=== PATIENT | male | born 1965 | race Caucasian/White ===

== ENCOUNTER → 2017-05-28 14:18 | Outpatient (CLI) | payer BC, SELFPAY ==
[2017-05-28 14:59] LABS: Basophils % 0.6 % (0.1-2.0); Eosinophils # 0.2 K/mm3 (0.0-0.4); Eosinophils % 2.7 % (0.1-12.0); Hematocrit 40.9 % (42.0-52.0); Hemoglobin 13.5 g/dL (14.1-18.0); Lymphocytes # 2.6 K/mm3 (0.7-4.5); Lymphocytes % 36.3 K/mm3 (10-50); Mean Corpuscular HGB Conc 33.1 g/dL (31.8-35.4); Mean Corpuscular Hemoglobin 30.6 pg (27.0-31.2); Mean Corpuscular Volume 92.7 fl (80-94); Mean Platelet Volume 6.5 fl (7.4-10.4); Monocytes # 0.4 K/mm3 (0.1-1.0); Monocytes % 5.5 % (1.7-9.3); Neutrophils # 3.9 K/mm3 (1.8-7.8); Neutrophils % 54.8 % (37.0-80.0); Platelet Count 444 K/mm3 (142-424); Red Blood Count 4.41 M/mm3 (4.60-6.20); Red Cell Distribution Width 12.7 % (11.5-17.5); White Blood Count 7.1 K/mm3 (4.8-10.8)
[2017-05-28 15:54] LABS: Alanine Aminotransferase 17 U/L (12-78); Albumin Level 4.3 gm/dL (3.4-5.0); Albumin/Globulin Ratio 1.9 (1.1-1.8); Alkaline Phosphatase 111 U/L (46-116); Amylase 35 U/L (25-125); Aspartate Amino Transferase 17 U/L (15-37); Bilirubin,Total 0.6 mg/dL (0.2-1.0); Blood Urea Nitrogen 6 mg/dL (7-18); Calcium 9.3 mg/dL (8.5-10.1); Carbon Dioxide 28 mmol/L (21.0-32.0); Chloride 92 mmol/L (98-107); Creatinine,Serum 0.72 mg/dL (0.70-1.30); Estimated Glomerular Filt Rate 115 ml/min (>60); GFR (African American) 139 ML/MIN (>60); Globulin 2.3 gm/dl (1.3-3.2); Glucose 94 mg/dL (74-106); Lipase 56 u/L (73-393); Sodium 129 mmol/L (136-145); Total Protein,Serum 6.6 gm/dL (6.4-8.2)
== END ==
PROVIDERS: Family Provider Family Medicine; PCP Family Medicine; Visit Provider Surgery
DX: K82.9 Disease of gallbladder, unspecified (principal); R10.11 Right upper quadrant pain
CPT/HCPCS: 36415; 80053; 82150; 83690; 85025

== ENCOUNTER → 2017-06-03 08:34 | Outpatient (CLI) | payer BC, SELFPAY ==
--- NOTE | 2017-06-03 08:39 | MR_ITS ---
MR cervical spine wo con HISTORY: Neck pain with left arm pain and numbness ITS.REASON: RADICULOPATHY, CERVICAL REGION ORDERING PHYSICIAN: Tyrone Sanches PATIENT AGE: 51 years COMPARISON: 04/08/2016 TECHNIQUE: Standard multiplanar multiecho sequences are performed without contrast. 3-D MIP and myelographic images are also rendered and reviewed FINDINGS: There is normal alignment. The craniocervical junction has an unremarkable appearance. C2-C3: Minimal bulging disc. C3-C4: Degenerative disc disease with bulging disc and broad-based disc osteophyte complex with narrowing of the canal along with bilateral lateral recess and foraminal narrowing similar to the previous exam. Canal measures approximately 7 mm. C4-C5: Degenerative disc disease with broad-based bulging disc/disc osteophyte complex with canal stenosis and bilateral lateral recess and foraminal narrowing similar to the previous exam. The foraminal narrowing slightly greater on the left. Canal stenosis at 6 mm which may be slightly more narrow on today's exam. There is mild flattening of the cord at both C3-C4 and C4-C5. C5-C6: Degenerative disc disease with bulging disc with narrowing of the canal. Mild bilateral foraminal and lower recess narrowing. Type I endplate changes at C5-6 C6-C7: Degenerative disc disease with bulging disc and minimal right paracentral disc protrusion. Previously noted right paracentral disc herniation no longer apparent. Type I endplate changes at C5-6. C7-T1: Minimal anterolisthesis of C7. IMPRESSION: 1. Severe cervical spondylosis with multilevel degenerative disc disease as detailed above. Please above for detailed description at each level. 2. C3-C4: Degenerative disc disease with bulging disc and broad-based disc osteophyte complex with narrowing of the canal along with bilateral lateral recess and foraminal narrowing similar to the previous exam. Canal measures approximately 7 mm. 3. C4-C5: Degenerative disc disease with broad-based bulging disc/disc osteophyte complex with canal stenosis and bilateral lateral recess and foraminal narrowing similar to the previous exam. The foraminal narrowing slightly greater on the left. Canal stenosis at 6 mm which may be slightly more narrow on today's exam. There is mild flattening of the cord at both C3-C4 and C4-C5. 4. C5-C6: Degenerative disc disease with bulging disc with narrowing of the canal. Mild bilateral foraminal and lower recess narrowing. 5. C6-C7: Degenerative disc disease with bulging disc and minimal right paracentral disc protrusion. Previously noted right paracentral disc herniation no longer apparent.
--- NOTE | 2017-06-03 09:23 | CT_ITS ---
CT abdomen pelvis w con CLINICAL INDICATION: Right-sided abdominal pain status post recent cholecystectomy ORDERING PHYSICIAN: Tyrone Sanches PATIENT AGE: 51 years COMPARISON: 04/21/2017 TECHNIQUE: Axial images obtained with sagittal and coronal reformats. PROCEDURE: Oral Contrast: Redicat IV Contrast: 75 mL Isovue-370. FINDINGS: The lung bases are clear. There is a 4 mm isodensity in the posterior segment of the right hepatic lobe and may be due to small cyst too small to characterize. The liver is otherwise unremarkable. There has been prior cholecystectomy. There is no evidence of biloma, abscess, or ductal dilatation. The spleen, adrenal glands, pancreas, and kidneys have an unremarkable appearance. No hydronephrosis or obstructing ureteral calculus or renal mass evident. No evidence of appendicitis, diverticulitis, intestinal obstruction, free air. There is a mild amount retained colonic feces. No pelvic mass evident no fluid collection or focal inflammatory change. There is bilateral pars defect at L5 without spondylolisthesis. No acute bony findings. IMPRESSION: 1. No acute abdominal or pelvic findings. 2. Prior cholecystectomy without ductal dilatation. 3. Other nonacute findings as described above
== END ==
PROVIDERS: Family Provider Family Medicine; PCP Family Medicine; Visit Provider Neurological Surgery
DX: R10.11 Right upper quadrant pain (principal); M54.12 Radiculopathy, cervical region
CPT/HCPCS: 72141; 74177; Q9967

== ENCOUNTER → 2017-08-20 09:45 | Outpatient (CLI) | payer BC, SELFPAY ==
[2017-08-20 10:26] VITALS: PULSE 65
== END ==
PROVIDERS: Family Provider Family Medicine; PCP Family Medicine; Visit Provider Family Medicine
DX: R06.02 Shortness of breath (principal)
CPT/HCPCS: 94060; 94640

== ENCOUNTER → 2017-09-02 10:09 | Outpatient (CLI) | payer BC, SELFPAY ==
--- NOTE | 2017-09-02 10:18 | CT_ITS ---
CT chest w con HISTORY: ITS.REASON: SHORTNESS OF BREATH ORDERING PHYSICIAN: Grace Patel MD PATIENT AGE: 51 years TECHNIQUE: Axial images obtained following the administration of 75 mL of Isovue 370 . Sagittal, and coronal reformatted images are also generated and reviewed. All CT scans at the facility use one or more dose reduction, viz: automated exposure control; ma/kV adjustment per patient size (including targeted exams where dose is matched to indication; i.e. head); or iterative reconstruction technique. COMPARISON: none FINDINGS: No mediastinal or hilar mass or adenopathy is evident. No evidence of aortic aneurysm, dissection, or central pulmonary embolus. Normal heart size. No evidence of pericardial effusion. There is hyperinflation suggesting small airway disease such as asthma or bronchitis. Does the patient have a positive smoking history? There is patchy groundglass density within the anterior aspect of the right middle lobe laterally and within the anterior aspect of the lingula which may represent mild pneumonitis. No lobar consolidation or collapse. There is a calcified granuloma in superior segment left lower lobe. Upper abdominal images are unremarkable. No acute bony anomalies. IMPRESSION: 1. Patchy groundglass density in the right middle lobe and lingula anteriorly and may represent small areas of pneumonitis. 2. Hyperinflation nonspecific but may be seen with small airway disease such as asthma, bronchitis, or COPD.
== END ==
PROVIDERS: Family Provider Family Medicine; PCP Family Medicine; Visit Provider Family Medicine
DX: R06.02 Shortness of breath (principal)
CPT/HCPCS: 71260; Q9967

== ENCOUNTER → 2017-09-20 17:01 | Outpatient (CLI) | payer BC, SELFPAY ==
[2017-09-20 18:39] LABS: Anion Gap 14.3 mEq/L (5-15); Blood Urea Nitrogen 13 mg/dL (7-18); Carbon Dioxide 27 mmol/L (21.0-32.0); Chloride 97 mmol/L (98-107); Estimated Glomerular Filt Rate 102 ml/min (>60); GFR (African American) 123 ML/MIN (>60); Glucose 112 mg/dL (74-106); Potassium 5.3 mmoL/L (3.5-5.1); Sodium 133 mmol/L (136-145)
== END ==
PROVIDERS: Visit Provider Physician Assistant
DX: E87.1 Hypo-osmolality and hyponatremia (principal)
CPT/HCPCS: 36415; 80048

== ENCOUNTER → 2017-10-01 07:06 | Outpatient (CLI) | payer BC, SELFPAY ==
[2017-10-01 08:49] LABS: Creatinine,Urine Random 87 mg/dL (20-320)
[2017-10-01 10:05] LABS: Anion Gap 11.4 mEq/L (5-15); Blood Urea Nitrogen 9 mg/dL (7-18); Carbon Dioxide 29 mmol/L (21.0-32.0); Chloride 100 mmol/L (98-107); Creatinine,Serum 0.69 mg/dL (0.70-1.30); Estimated Glomerular Filt Rate 120 ml/min (>60); GFR (African American) 146 ML/MIN (>60); Glucose 83 mg/dL (74-106); Potassium 4.4 mmoL/L (3.5-5.1); Sodium 136 mmol/L (136-145); Thyroid Stimulating Hormone 1.97 uIU/ml (0.358-3.740); Uric Acid 4.8 mg/dL (2.6-7.2)
[2017-10-02 19:41] LABS: Sodium, Urine 49 mmol/L (Not Estab.)
[2017-10-05 15:56] LABS: Adrenocorticotropic Hormone 12.3 pg/mL (7.2-63.3)
[2017-10-05 15:57] LABS: Osmolality, Urine 281 mOsmol/kg (.)
== END ==
PROVIDERS: Visit Provider Physician Assistant
DX: E87.1 Hypo-osmolality and hyponatremia (principal)
CPT/HCPCS: 36415; 80048; 82024; 82533; 82570; 83930; 83935; 84300; 84443; 84550; 84588

== ENCOUNTER → 2017-10-26 08:20 | Outpatient (CLI) | payer BC, SELFPAY ==
--- NOTE | 2017-10-26 08:21 | CA_ITS ---
PROCEDURE: 2-D M-mode and color Doppler study INDICATIONS FOR THE TEST: Chest pain COPDX Heart Murmur Tobacco SmokingX Palpitations Fatigue Syncope Edema Hypertension Diabetes Mellitus Rheumatic Fever SOBXDOE Obesity Hyperlipidemia Family History HD Additional History ZANA PATIENT INFORMATION HEIGHT: 68 WEIGHT:144 GENDER: Male B/P:148/75 2-D/M-MODE INTERPRETATION: 2-D MEASUREMENTS OBSERVED VALUES IN CMS Right Ventricular Dimension (RVDd) 2.5 Interventricular Septum (Thickness)(IVsd) .7 Left Ventricular Internal Dimensions(LVIDd) 5.6 Left Ventricular Posterior Wall (Thickness)(LVPWd) .8 Aortic Root 2.9 Aortic Cusp Separation 1.9 Left Atrial Dimensions (LAD) 2.1 2D 1. Left atrium is normal size, left ventricle is normal size, there is no concentric left ventricular hypertrophy, visually estimated ejection fraction 55% with no obvious regional wall motion abnormality. 2. The right atrium and right ventricle are normal size and contractility. 3. The aortic, mitral and tricuspid valve is structurally normal. 4. The pulmonic valve is poorly visualized. 5. No significant pericardial effusion noted. DOPPLER INTERROGATION: Doppler interrogation of the aortic, mitral and tricuspid valvular presence of mild mitral and tricuspid regurgitation, tricuspid and jet velocity insufficient for calculation of the right ventricular systolic pressure, diastolic parameters are inconclusive. CONCLUSION: 1. Normal left ventricular size, preserved left ventricular systolic function, visually estimated ejection fraction 55% with no obvious regional wall motion abnormality, diastolic parameters are inconclusive. 2. Mild mitral and tricuspid regurgitation. 3. No significant pericardial effusion noted.
== END ==
PROVIDERS: Family Provider Family Medicine; PCP Family Medicine; Visit Provider Internal Medicine Cardiovascular Disease
DX: R06.00 Dyspnea, unspecified (principal); J44.9 Chronic obstructive pulmonary disease, unspecified; R63.4 Abnormal weight loss; F41.9 Anxiety disorder, unspecified; F17.200 Nicotine dependence, unspecified, uncomplicated
CPT/HCPCS: 93306

== ENCOUNTER → 2017-11-03 16:44 | Outpatient (CLI) | payer BC, SELFPAY | PROVIDERS: PCP Family Medicine; Visit Provider Internal Medicine Cardiovascular Disease | DX: G47.33 Obstructive sleep apnea (adult) (pediatric) (principal); R06.83 Snoring; R06.00 Dyspnea, unspecified; I10 Essential (primary) hypertension; K21.9 Gastro-esophageal reflux disease without esophagitis; F39 Unspecified mood [affective] disorder; F41.9 Anxiety disorder, unspecified | CPT/HCPCS: 95806 ==

== ENCOUNTER → 2017-11-17 08:46 | Outpatient (CLI) | payer BC, SELFPAY ==
--- NOTE | 2017-11-17 08:49 | CT_ITS ---
CT abdomen w con CLINICAL INDICATION: ITS.REASON: RIGHT UPPER QUADRANT/BACK PAIN, PARESTHESIA, SWELL Right upper quadrant pain, knot where the gallbladder was removed ORDERING PHYSICIAN: Enrrique Watson MD PATIENT AGE: 51 years COMPARISON: 04/21/2017 TECHNIQUE: Axial images obtained with sagittal and coronal reformats. All CT scans at the facility use one or more dose reduction, viz: automated exposure control; ma/kV adjustment per patient size (including targeted exams where dose is matched to indication; i.e. head); or iterative reconstruction technique. PROCEDURE: Oral Contrast: Redicat IV Contrast: 75 mL's of Isovue-370. FINDINGS: The lung bases are clear. 5 mm isodensity right hepatic lobe posteriorly and inferiorly nonspecific too small to characterize but unchanged from an older study of 12/17/2016 and may be due to small cyst. Liver has an otherwise unremarkable appearance. Interval cholecystectomy. No ductal dilatation. The study does not include the pelvis. No abdominal wall hernia apparent in the images included which covers just below the umbilicus. The spleen, adrenal glands, pancreas, and kidneys have an unremarkable appearance. There are few scattered small mesenteric lymph nodes. No intestinal obstruction or free air. There is mild thoracolumbar curvature convex right. The proximal aspect of the celiac and superior mesenteric arteries have an unremarkable appearance. There is an accessory left gastric artery which originates from the aorta just to the right of the celiac origin. IMPRESSION: 1. Negative enhanced CT of the abdomen. 2. Status post cholecystectomy. No ductal dilatation, abnormal fluid collection, or abdominal wall hernia is demonstrated
== END ==
PROVIDERS: Family Provider Family Medicine; PCP Family Medicine; Visit Provider Surgery
DX: R10.11 Right upper quadrant pain (principal)
CPT/HCPCS: 74160; Q9967

== ENCOUNTER → 2017-12-10 15:30 | Outpatient (CLI) | payer BC, SELFPAY ==
--- NOTE | 2017-12-10 15:32 | MR_ITS ---
MR thoracic spine wo con HISTORY: Numbness on RT side of back that radiates to anterior portion of chest. Since Gallbladder surgery Apr 2017. Ribs are sore to touch on RT side. ITS.REASON: THORACIC RADICULOPATHY ORDERING PHYSICIAN: Gery Valadez MD PATIENT AGE: 52 years Comparison: None TECHNIQUE: Standard multiplanar multiecho sequences are performed without contrast. 3-D MIP and myelographic images are also rendered and reviewed FINDINGS: There is normal alignment. No acute fracture or dislocation is evident. Overall, the disc spaces are decreased throughout the thoracic spine with disc desiccation consistent with mild multilevel degenerative disc disease. There are Schmorl's nodes at the 8, T9, T10, T11, and T12 with some minimal loss of height of these vertebral bodies consistent with Scheuermann's disease. No canal stenosis or disc herniation evident. No impingement upon the cord. There are type II endplate changes at C6-C7 with degenerative disc disease at that level which is only visible on the sagittal images at the margin of the field of view. A small T2 hyperintensity involves the posterior superior aspect of T11 vertebral body nonspecific at 5 mm IMPRESSION: 1. Mild degenerative changes of the thoracic spine consistent with Scheuermann's disease of the lower thoracic spine 2. No acute fracture. No disc herniation or canal stenosis
== END ==
PROVIDERS: Family Provider Family Medicine; PCP Family Medicine; Visit Provider Family Medicine
DX: M54.14 Radiculopathy, thoracic region (principal)
CPT/HCPCS: 72146

== ENCOUNTER → 2018-03-10 12:52 | Outpatient (CLI) | payer BC, SELFPAY ==
--- NOTE | 2018-03-10 12:55 | MR_ITS ---
MR thoracic spine wo con HISTORY: RT sided back pain with pain radiating anteriorly. No trauma. ITS.REASON: PAIN IN THORACIC PAIN ORDERING PHYSICIAN: Tyrone Sanches PATIENT AGE: 52 years Comparison: MRI 12-10-17 TECHNIQUE: Standard multiplanar multiecho sequences are performed without contrast. 3-D MIP and myelographic images are also rendered and reviewed FINDINGS: There is mild multilevel degenerative disc disease with some irregularity of the endplates and disc desiccation at T8-L1 consistent with Scheuermann's disease as previously described not significant change. No acute fracture or dislocation. No canal stenosis or disc herniation. There is mild lower thoracic curvature convex right. No bony destructive process. Small T2 hyperintensity involves the superior aspect of T4 and T11 not significantly changed. IMPRESSION: 1. Degenerative changes of the thoracic spine as described above which are not significant changed. 2. No change with no acute finding. No acute fracture, canal stenosis, or disc herniation
== END ==
PROVIDERS: PCP Family Medicine; Visit Provider Neurological Surgery
DX: M54.6 Pain in thoracic spine (principal)
CPT/HCPCS: 72146

== ENCOUNTER → 2018-10-31 10:53 | Outpatient (POV) | payer OTHER, SELFPAY ==
[2018-10-31 11:01] VITALS: BP 135/69; PULSE 54; RESP 18; O2SAT 98; BMI 25.5
--- NOTE | 2018-10-31 11:25 | HMH.PMCON ---
Assessment and Plan (1) Thoracic radiculopathy Current visit: Yes Status: Chronic Category: Medical Code(s): M54.14 - Radiculopathy, thoracic region (2) Degenerative joint disease of thoracic spine Current visit: Yes Status: Chronic Category: Medical Code(s): M47.814 - Spondylosis without myelopathy or radiculopathy, thoracic region - Assessment and plan all Dx Assessment and Plan for all problems:: we will try the patient on 75 mg of Lyrica twice daily. If this is beneficial for him we will continue it if not we will change him back to his gabapentin 400 mg 1 p.o. 3 times daily. We will also schedule at T7-T8 right transforaminal epidural steroid injection to see if this is beneficial for him. I will follow-up with the patient after his injection reassess his symptoms at that time. He is been instructed to call the office if he has any issues prior to his next appointment. Dr. Kim has reviewed this note and agrees with this plan of care. This note was dictated using voice recognition software and may contain errors or omissions HPI - Data of Consult Patient: new to practice Consult date: 10/31/18 Requesting Physician: Tonya Henderson APRN Primary Care Provider: Grey Valadez MD - Consult Narrative Reason for consult: Thoracic radiculopathy History of present illness: Mr. Hercules is a 52 year old male who presents today for consultation of right thoracic pain radiating to right flank and right lower abdominal area. Patient states that the pain began after gallbladder surgery. He rates his pain a 5 out of 10. Patient was seen Dr. Jessica oh in [place] for pain management where he was receiving peripheral nerve blocks along with gabapentin. Patient states that the gabapentin was beneficial for him. Patient states that the trigger point/peripheral nerve blocks were beneficial for a short time. Patient does have thoracic imaging showing degeneration. Patient has a radicular pain stemming from his right spine in the T8 dermatome around his abdomen. He has had this for over 6 months. CC: Tonya Henderson APRN [facility] History I have reviewed the patient's past medical history: Yes Medical History: Reports:: Anxiety, Chronic Obstructive Pulmonary Disease (COPD), Gastroesophageal Reflux Disease(GERD), Hypertension, Palpitations Denies:: Cancer, Diabetes Mellitus Type 1, Diabetes Mellitus Type 2, Internal Pacemaker, MRSA, Seizures *Have you ever received a pneumonia vaccine?: No *Have you received a flu vaccine this season?: No Other Medical History: Reports: Other Laterality Cases: Bilateral: Tonsillectomy Other Surgeries: Yes: Cardiac Catheterization, Cholecystectomy, Colonoscopy, EGD, Other. No: Pacemaker Amputation: No Fractures: No - *Social History Smoking Status: Never smoker Tobacco Type: cigarettes Alcohol Intake: current Alcohol Intake Frequency:: 3 or more drinks per day Substance Use Type: denies use *Occupational Status:: other Housing: house Household Members: spouse *Travel in the last 8 weeks: None - Psychiatric History Expresses thoughts of harming self/others: None Suicide Plan Description: No Plan Pschychiatric History:: Reports:: Anxiety Family Hx:: Cancer, Hypertension, Coronary Artery Disease Review of Systems - Review of Systems ROS General: no recent weight change, no fever, no sleep disturbances Respiratory: no cough, no shortness of air, no recurring pulmonary infections Cardiovascular/Peripheral Vascular: No chest pain, No palpitations, no edema, no shortness of breath. Gastrointestinal: no incontinence, normal bowel movements reported Genitourinary: no incontinence Musculoskeletal: Right-sided thoracic pain Psychiatric: normal mood/ affect Neurological: [denies weakness in extremities], [denies balance issues] Meds Home Medications Medication Instructions Recorded Confirmed Type colestipol 5 gram oral granules 5 g PO QDAY 05/17/17 07/08/18
--- NOTE | 2018-10-31 12:04 | P.CONS_ITS ---
Assessment and Plan (1) Thoracic radiculopathy Current visit: Yes Status: Chronic Category: Medical Code(s): M54.14 - Radiculopathy, thoracic region (2) Degenerative joint disease of thoracic spine Current visit: Yes Status: Chronic Category: Medical Code(s): M47.814 - Spondylosis without myelopathy or radiculopathy, thoracic region - Assessment and plan all Dx Assessment and Plan for all problems:: we will try the patient on 75 mg of Lyrica twice daily. If this is beneficial for him we will continue it if not we will change him back to his gabapentin 400 mg 1 p.o. 3 times daily. We will also schedule at T7-T8 right transforaminal epidural steroid injection to see if this is beneficial for him. I will follow- up with the patient after his injection reassess his symptoms at that time. He is been instructed to call the office if he has any issues prior to his next appointment. Dr. Kim has reviewed this note and agrees with this plan of care. This note was dictated using voice recognition software and may contain errors or omissions HPI - Data of Consult Patient: new to practice Consult date: 10/31/18 Requesting Physician: Tonya Henderson APRN Primary Care Provider: Grey Valadez MD - Consult Narrative Reason for consult: Thoracic radiculopathy History of present illness: Mr. Hercules is a 52 year old male who presents today for consultation of right thoracic pain radiating to right flank and right lower abdominal area. Patient states that the pain began after gallbladder surgery. He rates his pain a 5 out of 10. Patient was seen Dr. Jessica oh in [place] for pain management where he was receiving peripheral nerve blocks along with gabapentin. Patient states that the gabapentin was beneficial for him. Patient states that the trigger point/peripheral nerve blocks were beneficial for a short time. Patient does have thoracic imaging showing degeneration. Patient has a radicular pain stemming from his right spine in the T8 dermatome around his abdomen. He has had this for over 6 months. CC: Tonya Henderson APRN [facility] History I have reviewed the patient's past medical history: Yes Medical History: Reports:: Anxiety, Chronic Obstructive Pulmonary Disease (COPD), Gastroesophageal Reflux Disease(GERD), Hypertension, Palpitations Denies:: Cancer, Diabetes Mellitus Type 1, Diabetes Mellitus Type 2, Internal Pacemaker, MRSA, Seizures *Have you ever received a pneumonia vaccine?: No *Have you received a flu vaccine this season?: No Other Medical History: Reports: Other Laterality Cases: Bilateral: Tonsillectomy Other Surgeries: Yes: Cardiac Catheterization, Cholecystectomy, Colonoscopy, EGD, Other. No: Pacemaker Amputation: No Fractures: No - *Social History Smoking Status: Never smoker Tobacco Type: cigarettes Alcohol Intake: current Alcohol Intake Frequency:: 3 or more drinks per day Substance Use Type: denies use *Occupational Status:: other Housing: house Household Members: spouse *Travel in the last 8 weeks: None - Psychiatric History Expresses thoughts of harming self/others: None Suicide Plan Description: No Plan Pschychiatric History:: Reports:: Anxiety Family Hx:: Cancer, Hypertension, Coronary Artery Disease Review of Systems - Review of Systems ROS General: no recent weight change, no fever, no sleep disturbances Respiratory: no cough, no shortness of air, no recurring pulmonary infections Cardiovascular/Peripheral Vascular: No chest pain, No palpitations, no edema, no shortness of breath. Gastrointestinal: no incontin
--- NOTE | 2018-11-14 10:21 | PC.NURSE ---
LYRICA 75MG BID PO WITH 2 REFILLS CALLED INTO [facility] PER PROVIDER ORDER
--- NOTE | 2019-03-13 10:28 | PC.NURSE ---
LYRICA 75MG BID WITH 2 REFILLS CALLED INTO [facility] PER PROVIDER ORDER
== END ==
PROVIDERS: PCP Family Medicine; Visit Provider Clinical Nurse Specialist Family Health
DX: M54.14 Radiculopathy, thoracic region (principal); M47.814 Spondylosis without myelopathy or radiculopathy, thoracic region
CPT/HCPCS: 99202

== ENCOUNTER → 2019-08-21 11:33 | Outpatient (POV) | payer OTHER, SELFPAY ==
--- NOTE | 2019-08-21 11:38 | HMH.AUDIO ---
Audio Check In - Consent Consent for phone encounter:: With the recent concerns about the COVID-19, we are trying to minimize exposure to you by shifting to telehealth appointments whenever possible. It restricts me from seeing you in person, but the trade off is protecting you during this pandemic. Can you hear me okay, and do you consent to this option? If not, I would be happy to see if we can reschedule your appointment in the future, when feasible. Did the patient consent to virtual visit?: Yes Did the patient initiate this encounter?: Yes Is this audio check in related to the patient visit in the: Yes - Discussion Discussion:: This encounter was performed as an audio visit via secure 2 wayaudio to minimize risk and transmission of Covid-19. The patient and we understand the limitations of a audio visit including inability to check reflexes, possibly missing subtle findings on physical exam. Alternative options were presented to the patient and the patient elected to proceed with the visit. We specifically discussed risk factors for Covid-19 including age, heart or lung disease, diabetes, immunosuppression and travel. We also discussed that NSAIDs may worsen Covid-19 infection symptoms and that they should not be used to treat Covid-19 symptoms. Patient was also informed that corticosteroids in any form oral or injectable will decrease immune response and may increase risk of Covid-[address] Kim has reviewed this patient's chart and this note and agrees with plan of care. Patient has been instructed to call the office if they have any issues prior to the next appointment. Patient is currently on 75 mg Lyrica twice a day and doing extremely well with it. He rates his pain today 3 out of 10. He denies any side effects to his medication. [facility] #[id number] reviewed and appropriate. Patient is having right-sided thoracic pain however it is well controlled at this time. He is in need of refills. ROS General: no recent weight change, no fever, no sleep disturbances Respiratory: no cough, no shortness of air, no recurring pulmonary infections Cardiovascular/Peripheral Vascular: No chest pain, No palpitations, no edema, no shortness of breath. Gastrointestinal: no new onset incontinence, normal bowel movements reported Genitourinary: no new onset incontinence Musculoskeletal: Right-sided thoracic pain Psychiatric: normal mood/ affect, [denies depression], [denies anxiety] Neurological: [denies new onset weakness in extremities], [denies new onset balance issues] Physical exam: Constitutional: alert, in no acute distress Psychiatric: Judgment and insight intact, Alert and oriented x4 Mood and affect: Mood normal, affect appropriate Respiratory: Breathing nonlabored, nondyspneic Neurologic: Sensation grossly intact per patient We will continue Lyrica 75 mg 1 p.o. twice daily and give him 1 refill in regards to this. We will see him back in 3 months reassess his symptoms at that time he has been instructed to call the office if he has any issues prior to his next appointment. Dr. Kim has reviewed this note and agrees with this plan of care. This note was dictated using voice recognition software and may contain errors or omissions - Length of Encounter Time In:: 11:30 Time Out:: 11:45
== END ==
PROVIDERS: Visit Provider Clinical Nurse Specialist Family Health
DX: M54.6 Pain in thoracic spine (principal); Z71.89 Other specified counseling
CPT/HCPCS: 99441; G2012

== ENCOUNTER → 2019-11-27 11:06 | Outpatient (POV) | payer OTHER, SELFPAY ==
[2019-11-27 11:27] VITALS: BP 134/84; PULSE 67; RESP 18; O2SAT 98; BMI 42.0
--- NOTE | 2019-11-27 11:31 | HMH.PAINSOAP ---
[facility] Pain Management SOAP Note Subjective:: Patient is a pleasant 54-year-old white male who presents today for follow-up. He is being treated for right side thoracic pain and is currently treated with Lyrica 75 mg 1 tablet p.o. twice daily. He denies any side effects to the medications. He says he is doing well overall. He does rate his pain a 2 out of 10 today. He is here for refill of his medication. Review of Systems General: No recent weight changes, no fever, no sleep disturbances Respiratory: No cough, no shortness of air, no recurring pulmonary infections Cardiovascular/peripheral vascular: No chest pain, no palpitations, no edema, no shortness of breath Gastrointestinal: No new onset incontinence, normal bowel movements reported Genitourinary: No new onset incontinence Musculoskeletal: Right mid back pain Psychiatric: Normal mood/affect Neurological: [Denies weakness in extremities], [denies balance issues] Objective:: Physical exam General: Alert and oriented x3, no acute distress, pleasant and cooperative, [on room air] Lungs: Respirations even and unlabored, symmetrical chest expansion Eyes: PERRL Musculoskeletal: Flexion and extension of thoracic spine somewhat guarded secondary to pain, deep tendon reflexes normal, strength in upper and lower extremities [5/5], normal gait noted Neurological: Speech clear, health information coder equal, no gross sensory deficit Assessment:: Thoracic back pain Plan:: We will refill the patient's Lyrica 75 mg 1 tablet p.o. twice daily. We will give him 3 months worth of medication and see him back in the clinic in 3 months to reassess his symptoms. He has been instructed to contact the clinic if he has any concerns before his next appointment. The patient and I specifically discussed risk factors for COVID19. These risks include, but are not limited to age greater than 60, heart or lung disease, diabetes, immunosuppression, and travel. We also discussed NSAIDs may worsen COVID19 infection or symptoms. Patient should not use NSAIDs to treat COVID19 signs or symptoms. Patient was also informed that any type of corticosteroid of any form (oral or injection) will decrease the patient's immune system response and may increase the likelihood of COVID19 infection and symptoms[address] Dr. Kim has reviewed this note and agrees with this plan of care. This note was dictated using voice recognition software and make contain errors or omissions. [facility] History I have reviewed the patient's past medical history: Yes Medical History: Reports:: Anxiety, Chronic Obstructive Pulmonary Disease (COPD), Gastroesophageal Reflux Disease(GERD), Hypertension, Palpitations Denies:: Cancer, Diabetes Mellitus Type 1, Diabetes Mellitus Type 2, Internal Pacemaker, MRSA, Seizures *Have you ever received a pneumonia vaccine?: Yes *Have you received a flu vaccine this season?: Yes Other Medical History: Reports: Other Laterality Cases: Bilateral: Tonsillectomy Other Surgeries: Yes: Cardiac Catheterization, Cholecystectomy, Colonoscopy, EGD, Other. No: Pacemaker Amputation: No Fractures: No - *Social History Smoking Status: Never smoker Tobacco Type: cigarettes Alcohol Intake: current Alcohol Intake Frequency:: 3 or more drinks per day Substance Use Type: denies use *Occupational Status:: other Housing: house Household Members: spouse *Travel in the last 8 weeks: None - Psychiatric History Pschychiatric History:: Reports:: Anxiety Family Hx:: Cancer, Hypertension, Coronary Artery Disease
== END ==
PROVIDERS: PCP Family Medicine; Visit Provider Clinical Nurse Specialist Family Health
DX: M54.6 Pain in thoracic spine (principal)
CPT/HCPCS: 99212

== ENCOUNTER → 2020-02-29 07:39 | Outpatient (CLI) | payer OTHER, SELFPAY ==
--- NOTE | 2020-02-29 07:44 | CT_ITS ---
PROCEDURE: CT LUNG SCREENING CLINICAL INDICATION: H/O NICOTINE DEPENDENCE Thirty pack year smoking history COMPARISON: CT CHESTW CT chest w con from 09/02/2017 TECHNIQUE: The exam was performed on a GE Light Speed [address] scanner using 2.90 mGy CTDI. A low dose helical CT CHEST was performed on a multi-detector scanner. All CT scans at the facility use one or more dose reduction, viz: automated exposure control, ma/kV adjustment per patient size (including targeted exams where dose is matched to indication, i.e. head), or iterative reconstruction technique. The LDCT was performed in a facility that meets the criteria for the screening program. Data regarding this exam was submitted to ACR which is an approved registry. The order for this exam indicates that it came as a result of a lung cancer screening counseling shard decision-making visit that included all the elements required of such a visit including smoking cessation. The radiologist interpreting this exam meets the CMS criteria for the LDCT lung cancer screening program. The exam is reported using the Lung-RADS classification scale and reported to the ACR registry. NOTE: This study was performed for the specific purposes of lung cancer screening and is not an alternative to diagnostic chest CT. RADIATION DOSE: CTDI vol(CT dose Index-volume) = 2.90mG DLP (Dose Length Product) = 117.5 mGcm FINDINGS: COPD changes. No lobar consolidation or collapse. Old granulomatous disease. No new suspicious nodules. OTHER FINDINGS: No other pertinent findings evident. IMPRESSION: Lung-RADS Category 1 Negative Follow-up: Continue annual screening with LDCT in 12 months Dictated by: Eitan Brewer MD 03/10/2020 08:37 Eitan Brewer MD in [place] 03/10/2020 08:37
== END ==
PROVIDERS: PCP Family Medicine; Visit Provider Family Medicine
DX: Z87.891 Personal history of nicotine dependence (principal); Z12.2 Encounter for screening for malignant neoplasm of respiratory organs

== ENCOUNTER → 2020-03-25 12:46 | Outpatient (CLI) | payer OTHER, SELFPAY ==
--- NOTE | 2020-03-25 12:50 | MR_ITS ---
PROCEDURE: MR CERVICAL SPINE WO CON CLINICAL INDICATION: CERVICALGIA NECK PAIN WORSE ON THE LT SIDE WITH POPPING. SYMPTOMS XYRS. NO HX SURGERY. NO INJURY. PRIOR MRI 06-03-17 COMPARISON: MR SPCERVWO MR cervical spine wo con from 06/03/2017 TECHNIQUE: Standard multiplanar multiecho sequences are performed without contrast. 3-D MIP and myelographic images are also rendered and reviewed FINDINGS: There is normal alignment. Craniocervical junction has an unremarkable appearance. C2-C3: There is degenerative disc disease with bulging disc and 2-3 mm anterolisthesis of C2 foraminal narrowing is present on the right from uncovertebral hypertrophy. There is narrowing of the canal at 9 mm. C3-C4: Degenerative disc disease with retrolisthesis of C3 by 4 mm. Bulging disc is present at this level with canal stenosis 9 mm. There is severe left-sided foraminal narrowing and mild right foraminal narrowing. There is impingement upon the cord anteriorly overall not significantly changed. C4-C5: Severe degenerative disc disease with bulging disc and mild retrolisthesis of C4 of 2 mm with small central disc protrusion with severe canal stenosis of 7 mm and severe bilateral lateral recess and foraminal narrowing similar to the previous exam. There is impingement upon the cord at this level overall not significantly changed. C5-C6: Severe degenerate disc disease with canal stenosis of 9 mm. There is ridging of the posterior endplate with facet and uncovertebral hypertrophy with canal stenosis, bilateral lateral recess narrowing, and bilateral foraminal narrowing overall not significantly changed. C6-C7: Severe degenerative disc disease with endplate hypertrophic changes. Minimal bulging disc with minimal right paracentral disc protrusion with bilateral foraminal narrowing C7-T1: Mild degenerative disc disease with mild bulging disc. Minimal anterolisthesis of C7 of 2-3 mm. IMPRESSION: Abnormal MRI of the cervical spine. There is multilevel cervical spondylosis with degenerative disc disease bulging disc facet ligamentum hypertrophy with canal stenosis lateral recess and foraminal narrowing with cord impingement as detailed above. Overall no significant change from the previous exam Dictated by: Eitan Brewer MD 03/26/2020 14:24 Eitan Brewer MD in [place] 03/26/2020 14:24
== END ==
PROVIDERS: PCP Family Medicine; Visit Provider Neurological Surgery
DX: M54.2 Cervicalgia (principal)
CPT/HCPCS: 72141; 76376

== ENCOUNTER → 2020-09-12 13:40 | Outpatient (POV) | payer OTHER, SELFPAY ==
[2020-09-12 13:57] VITALS: BP 114/75; PULSE 59; RESP 18; O2SAT 98; BMI 26.1
--- NOTE | 2020-09-12 14:17 | P.CONS_ITS ---
[facility] Pain Management SOAP Note Subjective:: Patient is a pleasant 54-year-old white male who presents today for follow-up. He is being treated for right-sided thoracic pain and is currently treated with Lyrica 75 mg 1 tab p.o. twice daily. He denies any side effects from his medication he states they are doing very well he rates his pain on his medication about a 2 out of 10. [facility] #[id number] reviewed and appropriate. ROS General: no recent weight change, no fever, no sleep disturbances Respiratory: no cough, no shortness of air, no recurring pulmonary infections Cardiovascular/Peripheral Vascular: No chest pain, No palpitations, no edema, no shortness of breath. Gastrointestinal: no new onset incontinence, normal bowel movements reported Genitourinary: no new onset incontinence Musculoskeletal: Right-sided thoracic pain Psychiatric: normal mood/ affect Neurological: [denies new onset weakness in extremities], [denies new onset balance issues] Objective:: Physical Exam General: Alert and oriented x3, no acute distress, pleasant and cooperative, [on room air] Lungs: Resps E/U, Symmetrical chest expansion, Eyes: PERRL Musculoskeletal: Flexion and extension of thoracic spine somewhat guarded secondary to pain, deep tendon reflexes normal, strength in upper and lower extremities [5/5], normal gait noted Neurological: speech clear, business enterprise officer equal, no gross sensory deficits Assessment:: Thoracic back pain Plan:: We will continue the patient's Lyrica 75 mg 1 p.o. twice daily we will give him 6 months worth medication we will see him back in 6 months reassess his symptoms at that time. Dr. Kim has reviewed this note and agrees with this plan of care. This note was dictated using voice recognition software and may contain errors or omissions [facility] History I have reviewed the patient's past medical history: Yes Medical History: Reports:: Anxiety, Chronic Obstructive Pulmonary Disease (COPD), Gastroesophageal Reflux Disease(GERD), Hypertension, Palpitations Denies:: Cancer, Diabetes Mellitus Type 1, Diabetes Mellitus Type 2, Internal Pacemaker, MRSA, Seizures *Have you ever received a pneumonia vaccine?: Yes *Have you received a flu vaccine this season?: Yes Other Medical History: Reports: Other Laterality Cases: Bilateral: Tonsillectomy Other Surgeries: Yes: Cardiac Catheterization, Cholecystectomy, Colonoscopy, EGD, Other. No: Pacemaker Amputation: No Fractures: No - *Social History Smoking Status: Never smoker Tobacco Type: cigarettes Alcohol Intake: current Alcohol Intake Frequency:: 3 or more drinks per day Substance Use Type: denies use *Occupational Status:: other Housing: house Household Members: spouse *Travel in the last 8 weeks: None - Psychiatric History Pschychiatric History:: Reports:: Anxiety Family Hx:: Cancer, Hypertension, Coronary Artery Disease
== END ==
PROVIDERS: PCP Family Medicine; Visit Provider Clinical Nurse Specialist Family Health
DX: M54.6 Pain in thoracic spine (principal)
CPT/HCPCS: 99212; G0463

== ENCOUNTER → 2021-02-04 08:26 | Outpatient (POV) | payer OTHER, SELFPAY | PROVIDERS: Visit Provider Dermatology | DX: Z00.00 Encounter for general adult medical examination without abnormal findings (principal) ==

== ENCOUNTER → 2021-02-06 10:57 | Outpatient (CLI) | payer OTHER, SELFPAY ==
--- NOTE | 2021-02-06 11:03 | XR_ITS ---
PROCEDURE: XR ANKLE LT MIN 3V CLINICAL INDICATION: LT ANKLE PAIN COMPARISON: No exams were available for comparison FINDINGS: No fracture or dislocation. No lytic or blastic change. There is normal mineralization. The joint spaces are well-preserved. No significant degenerative/arthritic changes. No erosive changes evident. The ankle mortise is preserved and the talar dome has an unremarkable appearance Other findings:Mild soft tissue swelling laterally. IMPRESSION: Mild lateral soft tissue swelling otherwise negative Dictated by: Eitan Brewer MD 02/06/2021 11:55 Eitan Brewer MD in [place] 02/06/2021 11:55
== END ==
PROVIDERS: PCP Family Medicine; Visit Provider Family Medicine
DX: M25.572 Pain in left ankle and joints of left foot (principal)
CPT/HCPCS: 73610

== ENCOUNTER → 2021-03-13 14:58 | Outpatient (CLI) | payer OTHER, SELFPAY ==
--- NOTE | 2021-03-13 15:00 | CT_ITS ---
PROCEDURE: CT LUNG SCREENING CLINICAL INDICATION: HX OF NICOTINE DEPENDENCE COMPARISON: CT CT LUNG SCREENING from 02/29/2020 TECHNIQUE: The exam was performed on a GE Light Speed [address] scanner using 2.90 mGy CTDI. A low dose helical CT CHEST was performed on a multi-detector scanner. All CT scans at the facility use one or more dose reduction, viz: automated exposure control, ma/kV adjustment per patient size (including targeted exams where dose is matched to indication, i.e. head), or iterative reconstruction technique. The LDCT was performed in a facility that meets the criteria for the screening program. Data regarding this exam was submitted to ACR which is an approved registry. The order for this exam indicates that it came as a result of a lung cancer screening counseling shard decision-making visit that included all the elements required of such a visit including smoking cessation. The radiologist interpreting this exam meets the CMS criteria for the LDCT lung cancer screening program. The exam is reported using the Lung-RADS classification scale and reported to the ACR registry. NOTE: This study was performed for the specific purposes of lung cancer screening and is not an alternative to diagnostic chest CT. RADIATION DOSE: CTDI vol(CT dose Index-volume) = 2.90mG DLP (Dose Length Product) = 112.03 mGcm FINDINGS: COPD changes. No suspicious nodules. There are scattered areas of scarring. Small fissural nodule present along the major fissure centrally on the left at 4 mm not significantly changed. OTHER FINDINGS: No other pertinent findings evident. IMPRESSION: Lung-RADS Category 2 Benign Appearance or Behavior Follow-up: Continue annual screening with LDCT in 12 months Dictated by: Eitan Brewer MD 03/24/2021 07:49 Eitan Brewer MD in [place] 03/24/2021 07:49
== END ==
PROVIDERS: PCP Family Medicine; Visit Provider Family Medicine
DX: Z87.891 Personal history of nicotine dependence (principal); Z12.2 Encounter for screening for malignant neoplasm of respiratory organs
CPT/HCPCS: 71271

== ENCOUNTER → 2021-05-20 10:18 | Outpatient (POV) | payer OTHER, SELFPAY ==
--- NOTE | 2021-05-20 10:44 | P.CONS_ITS ---
[facility] Pain Management SOAP Note Subjective:: Patient is a 55-year-old white male who presents today for medication refills. We do treat the patient for continued right-sided thoracic pain as well as right upper quadrant pain post cholecystectomy. He is doing well at this time with his medicines. He is managed with Lyrica 75 mg 1 tablet p.o. twice daily. He denies any side effects. He rates his pain a 2 out of 10 today. [facility] #[id number] has been reviewed and is appropriate. Drug screen is appropriate. Review of Systems General: No recent weight changes, no fever, no sleep disturbances Respiratory: No cough, no shortness of air, no recurring pulmonary infections Cardiovascular/peripheral vascular: No chest pain, no palpitations, no edema, no shortness of breath Gastrointestinal: No new onset incontinence, normal bowel movements reported Genitourinary: No new onset incontinence Musculoskeletal: Chronic right mid back pain, right upper quadrant pain Psychiatric: [Normal mood/affect] Neurological: [Denies weakness in extremities], [denies balance issues] Objective:: Physical exam General: Alert and oriented x3, no acute distress, pleasant and cooperative Lungs: Respirations even and unlabored, symmetrical chest expansion Eyes: PERRL Musculoskeletal: Flexion and extension of thoracic [spine] somewhat guarded secondary to pain, normal gait noted Neurological: Speech clear, no gross sensory deficit Assessment:: Mid back pain, right upper quadrant pain Plan:: Patient is doing well with his Lyrica. We will continue him on Lyrica 75 mg 1 tablet p.o. twice daily. We will give the patient 5 months medication. He can contact the clinic if he has any problems before appointment. Risks and benefits of the medication have been explained in detail to the patient. If side effects do present with the medication, patient has been advis ed to stop the medication immediately and call the clinic. The patient has been advised to consult with his/her primary care provider and pharmacist regarding drug-drug interaction of medications currently prescribed.\ Patient has been instructed to contact the clinic with any concerns before the next appointment. Dr. Kim has reviewed this note and agrees with this plan of care. This note was dictated using voice recognition software and make contain errors or omissions. [facility] History I have reviewed the patient's past medical history: Yes Medical History: Reports:: Anxiety, Chronic Obstructive Pulmonary Disease (COPD), Diabetes Mellitus Type 1, Gastroesophageal Reflux Disease(GERD), Hypertension, Palpitations Denies:: Cancer, Diabetes Mellitus Type 2, Internal Pacemaker, MRSA, Seizures *Have you ever received a pneumonia vaccine?: Yes *Have you received a flu vaccine this season?: Yes Other Medical History: Reports: Other Laterality Cases: Bilateral: Tonsillectomy Other Surgeries: Yes: Cardiac Catheterization, Cholecystectomy, Colonoscopy, EGD, Other. No: Pacemaker Amputation: No Fractures: No - *Social History Smoking Status: Former smoker Tobacco Type: cigarettes Alcohol Intake: current Alcohol Intake Frequency:: 3 or more drinks per day Substance Use Type: denies use *Occupational Status:: other, employed Housing: house Household Members: spouse, children *Travel in the last 8 weeks: None - Psychiatric History Pschychiatric History:: Reports:: Anxiety Family Hx:: Cancer, Hypertension, Coronary Artery Disease
[2021-05-20 10:54] VITALS: BP 138/74; PULSE 48; RESP 18; O2SAT 98; BMI 25.8
== END ==
PROVIDERS: Visit Provider Clinical Nurse Specialist Family Health
DX: M54.6 Pain in thoracic spine (principal); R10.11 Right upper quadrant pain
CPT/HCPCS: 99212; G0463

== ENCOUNTER → 2021-08-19 16:03 | Outpatient (POV) | payer OTHER, SELFPAY | PROVIDERS: Visit Provider Dermatology | DX: Z00.00 Encounter for general adult medical examination without abnormal findings (principal) ==

== ENCOUNTER → 2021-11-17 11:33 | Outpatient (POV) | payer OTHER, SELFPAY ==
[2021-11-17 12:44] VITALS: BP 121/80; PULSE 55; RESP 17; TEMP 36.6; O2SAT 99; BMI 26.6
--- NOTE | 2021-11-17 13:11 | P.CONS_ITS ---
[facility] Pain Management SOAP Note Subjective:: Patient is a pleasant 55-year-old male who is here for medication refill and follow-up. Patient is currently being treated for right-sided thoracic pain and right upper quadrant pain, postcholecystectomy. Patient is being managed with Lyrica 75 mg twice a day. Patient denies any side effects from the medications. Patient denies any changes to the location and type of pain. Patient states that this is adequately helping manage their pain. Rates pain as 1 out of 10. [facility] number [id number] with an active morphine equivalent 0. Drug screens have been reviewed and appropriate. Review of Systems: General: No recent weight changes, no fever, no sleep disturbances Respiratory: No cough, no shortness of air, no recurring pulmonary infections Cardiovascular/peripheral vascular: No chest pain, no palpitations, no edema, no shortness of breath Gastrointestinal: No new onset incontinence, normal bowel movements reported Genitourinary: No new onset incontinence Musculoskeletal: Normal pain Psychiatric: [Normal mood/affect] Neurological: [Denies weakness in extremities], [denies balance issues] Objective:: Physical Exam: General: Alert and oriented x3, no acute distress, pleasant and cooperative Lungs: Respirations even and unlabored, symmetrical chest expansion Eyes: PERRL Musculoskeletal: Tender to palpation around the right upper quadrant right thoracic area Neurological: Speech clear, no gross sensory deficit Assessment:: Right-sided thoracic pain, right upper quadrant pain status post post cholecystectomy Plan:: We will continue the patient's Lyrica 75 mg twice a day. We will provide the patient with 6 months of refills. We would like to see the patient back in 6 months for follow-up and reevaluation of chronic pain syndrome. Patient has been advised of risks of oversedation with the prescribed medication. Narcan has been offered to the patient in the event of oversedation. Patient has been advised that a family member should also be educated regarding administration of Narcan. Patient has been instructed to contact the clinic with any concerns before the next appointment. Dr. Kim has reviewed this note and agrees with this plan of care. This note was dictated using voice recognition software and make contain errors or omissions. [facility] History Medical History: Reports:: Anxiety, Chronic Obstructive Pulmonary Disease (COPD), Diabetes Mellitus Type 1, Gastroesophageal Reflux Disease(GERD), Hypertension, Palpitations Denies:: Cancer, Diabetes Mellitus Type 2, Internal Pacemaker, MRSA, Seizures *Have you ever received a pneumonia vaccine?: No *Have you received a flu vaccine this season?: No Other Medical History: Reports: Other Laterality Cases: Bilateral: Tonsillectomy Other Surgeries: Yes: Cardiac Catheterization, Cholecystectomy, Colonoscopy, EGD, Other. No: Pacemaker Amputation: No Fractures: No - *Social History Smoking Status: Former smoker Tobacco Type: cigarettes Alcohol Intake: current Alcohol Intake Frequency:: 3 or more drinks per day Substance Use Type: denies use *Occupational Status:: other Housing: house Household Members: spouse, children *Travel in the last 8 weeks: None - Psychiatric History Pschychiatric History:: Reports:: Anxiety Family Hx:: Cancer, Hypertension, Coronary Artery Disease
== END ==
PROVIDERS: Visit Provider Student in an Organized Health Care Education/Training Program
DX: M54.6 Pain in thoracic spine (principal); Z90.49 Acquired absence of other specified parts of digestive tract; R10.11 Right upper quadrant pain
CPT/HCPCS: 99212; G0463

== ENCOUNTER → 2022-06-02 13:21 | Outpatient (POV) | payer OTHER, SELFPAY ==
[2022-06-02 13:40] VITALS: BP 147/90; PULSE 53; RESP 18; TEMP 36.3; O2SAT 100; BMI 27.3
--- NOTE | 2022-06-02 13:53 | A.OFFVIS_ITS ---
[facility] Pain Management SOAP Note Subjective:: Patient is a pleasant 56-year-old male who presents today for medication refill and 6-month follow-up. We are currently treating the patient for right-sided thoracic pain and right upper quadrant pain, post cholecystectomy. Today he rates his pain a 1 out of 10. Patient denies any new trauma or injury. Patient denies any change location or type of pain he experiences. Patient is currently managed with pregabalin 75 mg twice a day. Patient denies any side effects from this medication. He states this medication significantly improves his pain symptoms. Patient does state occasionally he only has to take this medication once a day. His [place] is [phone]. Its been reviewed and appropriate. Review of Systems: General: No recent weight changes, no fever, no sleep disturbances Respiratory: No cough, no shortness of air, no recurring pulmonary infections Cardiovascular/peripheral vascular: No chest pain, no palpitations, no edema, no shortness of breath Gastrointestinal: No new onset incontinence, normal bowel movements reported Genitourinary: No new onset incontinence Musculoskeletal: Abdominal pain Psychiatric: [Normal mood/affect] Neurological: [Denies weakness in extremities], [denies balance issues] Objective:: Physical Exam: General: Alert and oriented x3, no acute distress, pleasant and cooperative Lungs: Respirations even and unlabored, symmetrical chest expansion Eyes: PERRL Musculoskeletal: Flexion and extension of lumbar [spine] somewhat guarded secondary to pain, [antalgic gait noted] Neurological: Speech clear, no gross sensory deficit Assessment:: Right-sided thoracic pain and right upper quadrant pain, post cholecystectomy Plan:: Patient continues to do well with his current medication regimen. I will refill his pregabalin 75 mg twice a day and provide a 6-month prescription. Patient will return to clinic in 6 months for reevaluation of symptoms, medication refill and follow-up. Patient has been instructed to contact the clinic with any concerns before the next appointment. Dr. Kim has reviewed this note and agrees with this plan of care. This note was dictated using voice recognition software and make contain errors or omissions. [facility] Disclaimer: The information contained in this section may have been updated after the patient was seen, as this information can be updated by other users. Social History Smoking Status: Former smoker second hand exposure: No alcohol intake: current counseling provided: none substance use type: denies use current occupational status: other Travel in the last 8 weeks: None household members: spouse and children housing: house current occupational exposures/hazards: No caffeine: No
== END | disposition home or self-care (01) ==
PROVIDERS: PCP Family Medicine; Visit Provider Nurse Anesthetist, Certified Registered
DX: M54.6 Pain in thoracic spine (principal); R10.11 Right upper quadrant pain; Z90.49 Acquired absence of other specified parts of digestive tract
CPT/HCPCS: 99212; G0463

== ENCOUNTER → 2022-07-22 13:45 | Outpatient (CLI) | payer OTHER, SELFPAY ==
--- NOTE | 2022-07-22 13:49 | XR_ITS ---
FINAL REPORT CLINICAL HISTORY: LT KNEE PAIN FINDINGS: LEFT KNEE: Three views of the left knee were obtained. There is no acute fracture or dislocation. Visualized joint spaces are normally aligned. There is no joint effusion. Soft tissues are unremarkable. IMPRESSION: No acute bony abnormality. Reviewed, Interpreted and Dictated by Enrrique Wade III, MD Transcribed by Kenia Gil Authenticated and [facility]
== END ==
PROVIDERS: PCP Family Medicine; Visit Provider Physician Assistant
DX: M25.562 Pain in left knee (principal)
CPT/HCPCS: 73562

== ENCOUNTER → 2022-08-05 08:04 | Outpatient (CLI) | payer OTHER, SELFPAY ==
--- NOTE | 2022-08-05 08:07 | MR_ITS ---
FINAL REPORT TECHNIQUE: Multiplanar and multisequence imaging of the left knee was obtained without contrast. CLINICAL HISTORY: ACUTE PAIN OF LEFT KNEE. lateral knee pain, pt fell while climbing fence. COMPARISON: Radiograph 07/22/2022 FINDINGS: Bones: There is a fracture of the fibular head which is nondisplaced with surrounding bone contusion. There is bone marrow edema in the lateral proximal tibia without fracture. The remaining marrow signal is preserved. There are no full thickness cartilage defects. Menisci: No meniscal tear is present. Ligaments: There is abnormal signal intensity in the ACL, a partial tear of the ACL not excluded. The PCL and collateral ligaments are intact. Tendons/Muscles: The quadriceps and patellar tendons are within normal limits. The biceps femoris tendon and iliotibial tract are intact. The popliteus tendon is normal. Other: There is a small joint effusion. Prominent soft tissue edema in the lateral proximal calf soft tissues. IMPRESSION: Nondisplaced fracture fibular head. Possible partial ACL tear, may be chronic. Reviewed, Interpreted and Dictated by Daniela Vergara MD Transcribed by Courtney Saucedo Authenticated and [facility]
== END ==
PROVIDERS: PCP Family Medicine; Visit Provider Physician Assistant
DX: M25.562 Pain in left knee (principal)
CPT/HCPCS: 73721

== ENCOUNTER → 2022-10-13 08:44 | Outpatient (POV) | payer OTHER, SELFPAY | PROVIDERS: Visit Provider Dermatology | DX: Z00.00 Encounter for general adult medical examination without abnormal findings (principal) ==

== ENCOUNTER → 2022-12-09 14:09 | Outpatient (POV) | payer OTHER, SELFPAY ==
--- NOTE | 2022-12-09 15:10 | A.OFFVIS_ITS ---
[facility] Pain Management SOAP Note Subjective:: Patient is a pleasant 57-year-old male who presents today for 6-month follow-up with medication refill. We are currently treating the patient for right-sided thoracic pain and right upper quadrant pain, post cholecystectomy. Today he rates his pain a 1 out of 10. Patient denies any new trauma or injury. Patient denies any change location or type of pain he experiences. Patient is currently managed with pregabalin 75 mg twice a day. Patient denies any side effects from this medication. His Chano is . Its been reviewed and appropriate. Review of Systems: General: No recent weight changes, no fever, no sleep disturbances Respiratory: No cough, no shortness of air, no recurring pulmonary infections Cardiovascular/peripheral vascular: No chest pain, no palpitations, no edema, no shortness of breath Gastrointestinal: No new onset incontinence, normal bowel movements reported Genitourinary: No new onset incontinence Musculoskeletal: Abdominal pain Psychiatric: [Normal mood/affect] Neurological: [Denies weakness in extremities], [denies balance issues] Objective:: Physical Exam: General: Alert and oriented x3, no acute distress, pleasant and cooperative Lungs: Respirations even and unlabored, symmetrical chest expansion Eyes: PERRL Musculoskeletal: Flexion and extension of lumbar [spine] somewhat guarded secondary to pain, [antalgic gait noted] Neurological: Speech clear, no gross sensory deficit Assessment:: Right-sided thoracic pain with right upper quadrant pain, postcholecystectomy Plan:: Patient continues to do well with the current medication regimen. I will refill his pregabalin 75 mg twice a day and provide a 6-month supply of this medication. Patient will return to clinic in 6 months for reevaluation of symptoms and plan of care. Patient has been instructed to contact the clinic with any concerns before the next appointment. Dr. Kim has reviewed this note and agrees with this plan of care. This note was dictated using voice recognition software and make contain errors or omissions. [facility] Disclaimer: The information contained in this section may have been updated after the patient was seen, as this information can be updated by other users. Social History Smoking Status: Former smoker second hand exposure: No alcohol intake: current counseling provided: none substance use type: denies use current occupational status: other Travel in the last 8 weeks: None household members: spouse and children housing: house current occupational exposures/hazards: No caffeine: No
== END | disposition home or self-care (01) ==
PROVIDERS: Visit Provider Nurse Practitioner Family
DX: Z53.21 Procedure and treatment not carried out due to patient leaving prior to being seen by health care provider (principal); M54.6 Pain in thoracic spine; R10.11 Right upper quadrant pain

== ENCOUNTER → 2023-01-25 13:43 | Outpatient (POV) | payer OTHER, SELFPAY ==
--- NOTE | 2023-01-25 13:55 | EXP.PAIN.SOA ---
[facility] Pain Management SOAP Note Subjective:: Patient is a pleasant 57-year-old male who presents today for 6-month follow-up and medication refill. We are currently treating the patient for right-sided thoracic pain and right upper quadrant pain status postcholecystectomy. Today he rates his pain a 1 out of 10. Patient denies any new trauma or injury. He denies any change to location or type of pain he experiences. Patient is currently managed with pregabalin 75 mg twice a day. He states this still continues to provide significant relief. He denies any side effects. His Chano is [id number]. Its been reviewed and appropriate. Review of Systems: General: No recent weight changes, no fever, no sleep disturbances Respiratory: No cough, no shortness of air, no recurring pulmonary infections Cardiovascular/peripheral vascular: No chest pain, no palpitations, no edema, no shortness of breath Gastrointestinal: No new onset incontinence, normal bowel movements reported Genitourinary: No new onset incontinence Musculoskeletal: Mid back pain Psychiatric: [Normal mood/affect] Neurological: [Denies weakness in extremities], [denies balance issues] Objective:: Physical Exam: General: Alert and oriented x3, no acute distress, pleasant and cooperative Lungs: Respirations even and unlabored, symmetrical chest expansion Eyes: PERRL Musculoskeletal: Flexion and extension of thoracic [spine] somewhat guarded secondary to pain, [antalgic gait noted] Neurological: Speech clear, no gross sensory deficit Assessment:: Mid back pain, right-sided thoracic pain, right upper quadrant pain status postcholecystectomy Plan:: Patient continues to do well with his current medication regimen. I will refill his pregabalin 75 mg twice daily and provide a 6-month supply of this medication. Patient will return to clinic in 6 months for reevaluation of symptoms and plan of care. Patient has been instructed to contact the clinic with any concerns before the next appointment. Dr. Kim has reviewed this note and agrees with this plan of care. This note was dictated using voice recognition software and make contain errors or omissions. [facility] Disclaimer: The information contained in this section may have been updated after the patient was seen, as this information can be updated by other users. Social History Smoking Status: Former smoker second hand exposure: No alcohol intake: current counseling provided: none substance use type: denies use current occupational status: other Travel in the last 8 weeks: None household members: spouse and children housing: house current occupational exposures/hazards: No caffeine: No
[2023-01-25 14:00] VITALS: BP 117/74; PULSE 72; RESP 18; O2SAT 97; BMI 26.3
== END | disposition home or self-care (01) ==
PROVIDERS: PCP Family Medicine; Visit Provider Nurse Practitioner Family
DX: M54.6 Pain in thoracic spine (principal); R10.11 Right upper quadrant pain; Z90.49 Acquired absence of other specified parts of digestive tract
CPT/HCPCS: 99212; G0463

== ENCOUNTER 2023-09-09 12:46 | Outpatient (POV) | payer OTHER, SELFPAY ==
[2023-09-09 12:59] VITALS: BP 136/77; PULSE 50; RESP 16; O2SAT 98; BMI 26.9
--- NOTE | 2023-09-09 13:05 | A.OFFVIS_ITS ---
[facility] Pain Management SOAP Note Subjective:: Patient is a pleasant 57-year-old male who presents today for medication refill and 6-month follow-up. Today he rates his pain an 5 out of 10. Patient denies any new trauma or injury. He does state that he did stop taking his pregabalin for a couple days however the pain immediately came back and he started back to it. Patient is currently managed with pregabalin 75 mg twice a day. He denies any side effects from this medication and states it does provide significant relief. His Chano has been reviewed and is appropriate. Review of Systems: General: No recent weight changes, no fever, no sleep disturbances Respiratory: No cough, no shortness of air, no recurring pulmonary infections Cardiovascular/peripheral vascular: No chest pain, no palpitations, no edema, no shortness of breath Gastrointestinal: No new onset incontinence, normal bowel movements reported Genitourinary: No new onset incontinence Musculoskeletal: Mid back pain Psychiatric: [Normal mood/affect] Neurological: [Denies weakness in extremities], [denies balance issues] Objective:: Physical Exam: General: Alert and oriented x3, no acute distress, pleasant and cooperative Lungs: Respirations even and unlabored, symmetrical chest expansion Eyes: PERRL Musculoskeletal: Flexion and extension of thoracic [spine] somewhat guarded secondary to pain, [antalgic gait noted] Neurological: Speech clear, no gross sensory deficit Assessment:: Mid back pain, right-sided thoracic pain, right upper quadrant pain status postcholecystectomy Plan:: Patient continues to do well with his pregabalin. I will send in a 6-month supply of this medication and he will return to clinic in 6 months for reevaluation of symptoms and plan of care. Patient has been instructed to contact the clinic with any concerns before the next appointment. Dr. Kim has reviewed this note and agrees with this plan of care. This note was dictated using voice recognition software and make contain errors or omissions. [facility] Disclaimer: The information contained in this section may have been updated after the patient was seen, as this information can be updated by other users. Social History Smoking Status: Former smoker tobacco type: cigarettes second hand exposure: No alcohol intake: current alcohol intake frequency: 3 or more drinks per day counseling provided: none substance use type: denies use current occupational status: other Travel in the last 8 weeks: None household members: spouse and children housing: house current occupational exposures/hazards: No caffeine: No
== END 2023-09-09 23:59 | disposition home or self-care (01) ==
PROVIDERS: PCP Family Medicine; Visit Provider Nurse Practitioner Family
DX: M54.6 Pain in thoracic spine (principal); R10.11 Right upper quadrant pain; Z90.49 Acquired absence of other specified parts of digestive tract
CPT/HCPCS: 99212; G0463

== ENCOUNTER 2023-11-17 09:01 | Day surgery (SDC) | payer OTHER, SELFPAY ==
[2023-11-16 12:29] VITALS: BMI 24.3
[2023-11-17 09:15] VITALS: BP 142/75; PULSE 55; RESP 16; TEMP 36.2; O2SAT 99
[2023-11-17] MEDS: LACTATED RINGERS 1000ML 1,000 ML 25 ML IV (09:26)
--- NOTE | 2023-11-17 09:47 | EXP.ANES.CKL ---
[facility] Disclaimer: The information contained in this section may have been updated after the patient was seen, as this information can be updated by other users. Medical History Sleep apnea History of gastroesophageal reflux (GERD) Surgical History History of tonsillectomy History of cholecystectomy Family History Other Family history of acute congestive heart failure Family history of cancer Lung cancer Social History Smoking Status: Former smoker tobacco type: cigarettes second hand exposure: No alcohol intake: current alcohol intake frequency: 3 or more drinks per day counseling provided: none substance use type: denies use current occupational status: employed Travel in the last 8 weeks: None household members: spouse and children housing: house current occupational exposures/hazards: No caffeine: No [facility] Anesthesia Checklist Patient Identification Patient Identification: Arm Band and Verbal (Name & ) Structural Data Admitted From: Home Planned Operative Procedure/s: Colonoscopy Consent for Planned Operative Procedure(s) Verified: Yes Verified Documents: Surgical Consent and History and Physical NPO Status Verified Time NPO: 00:00 Additional verifications Anesthesia Reactions: No Airway Assessment Mallampati Score:: Class II C-Spine Mobility Assessed: Yes TMJ Mobility Assessed: Yes Dentition: Good Dentition Neurological Assessment Level of Consciousness: Awake Hx Seizures: No Numbness or tingling in extremities: No Anesthesia Plan Anesthesia Risk discussed: Yes Anesthesia Plan: Verified ASA Class: II Anesthesia Type: MAC
[2023-11-17 09:55] VITALS: O2SAT 95
--- NOTE | 2023-11-17 10:13 | HMH.SCOPE ---
Procedure: Date: 11/17/23 Patient Date of :: 1965 Procedure Performed:: Colonoscopy Indications:: The patient is a 57-year-old who presents for surveillance colonoscopy for a history of polyps in the past. Performing Provider:: Speedy Martinez MD Referring Provider:: Grey Valadez MD Sedation:: See RN records Procedure:: After placing the patient in the left lateral decubitus position, the colonoscopy was gently inserted into the rectum and under direct visualization advanced to the cecum which was identified by transillumination in the right lower quadrant, identification of the ileocecal valve, appendiceal orifice, and cecal strap. Color, texture, mucosa, and anatomy of the colon were carefully examined with the scope. Findings:: The quality of the bowel preparation was excellent. There was a pedunculated polyp measuring 9 to 10 mm in size at the distal sigmoid colon. The polyp was removed by hot snare polypectomy. Resection was complete and the polyp was retrieved. Two diminutive polyps were found in the rectum. The polyps were removed by cold forceps. The remaining colon appeared normal. On retroflexion view of the rectum internal hemorrhoids were seen. Impression: Polyp of the sigmoid colon Polyps of the rectum Recommendations:: Await pathology Repeat colonoscopy in 3 years Complications:: None Estimated blood obtained (mL): 0 Colonoscopy Component Colonoscopy Component Was a colonoscopy performed during today's procedure?: Yes Recommended follow up colonoscopy of at least 10 years?: Yes
[2023-11-17 10:14] VITALS: BP 87/57; PULSE 60; RESP 12; TEMP 36.4; O2SAT 91
[2023-11-17 10:24] VITALS: BP 105/57; PULSE 57; RESP 16; O2SAT 96
[2023-11-17 10:34] VITALS: BP 103/57; PULSE 69; RESP 16; O2SAT 96
[2023-11-17 10:44] VITALS: BP 101/60; PULSE 64; RESP 16; O2SAT 98
[2023-11-17 11:08] LABS: Basophils # 0.1 K/mm3 (0-0.2); Basophils % 1.2 % (0.1-2.0); Eosinophils # 0.2 K/mm3 (0.0-0.4); Eosinophils % 5.4 % (0.1-12.0); Hemoglobin 14.3 g/dL (14.1-18.0); Lymphocytes # 1.2 K/mm3 (0.7-4.5); Mean Corpuscular HGB Conc 32.5 g/dL (31.8-35.4); Mean Corpuscular Hemoglobin 30.5 pg (27.0-31.2); Mean Corpuscular Volume 94.1 fl (80-94); Mean Platelet Volume 7.3 fl (7.4-10.4); Monocytes # 0.2 K/mm3 (0.1-1.0); Monocytes % 5.2 % (1.7-9.3); Neutrophils # 2.5 K/mm3 (1.8-7.8); Neutrophils % 60.3 % (37.0-80.0); Platelet Count 320 K/mm3 (142-424); Red Blood Count 4.67 M/mm3 (4.60-6.20); Red Cell Distribution Width 13.8 % (11.5-17.5); White Blood Count 4.1 K/mm3 (4.8-10.8)
[2023-11-17 11:50] LABS: Alanine Aminotransferase 20 U/L (12-78); Albumin Level 4.2 g/dl (3.5-5.0); Alkaline Phosphatase 95 U/L (38-126); Anion Gap 10.4 mEq/L (5-15); Aspartate Amino Transferase 25 U/L (17-59); Bilirubin,Indirect 0.9 mg/dL (0.0-0.9); Bilirubin,Total 0.9 mg/dl (0.2-1.3); Blood Urea Nitrogen 8 mg/dl (9-20); Calcium 9.5 mg/dl (8.4-10.2); Carbon Dioxide 28 mmol/L (22.0-30.0); Chloride 100 mmol/L (98-107); Chol/HDL Ratio 4.9 (1-3.5); Cholesterol 222 mg/dl (140-200); Creatinine Clearance Estimated 92 mL/min (50-200); Estimated Glomerular Filt Rate 87 ml/min (>60); GFR (African American) 105 ML/MIN (>60); Glucose 94 mg/dl (74-100); HDL Cholesterol 45 mg/dl (40-60); Magnesium 1.9 mg/dl (1.6-2.3); Potassium 4.4 mmoL/L (3.5-5.1); Sodium 134 mmol/L (136-145); Total Protein,Serum 6.4 g/dl (6.3-8.2); Triglycerides 325 mg/dl (30-150); VLDL Cholesterol 65 mg/dL (0-40)
[2023-11-17 12:01] LABS: Direct LDL Cholesterol 107.24 mg/dL (100-129)
[2023-11-17 12:21] LABS: Thyroid Stimulating Hormone 1.61 uIU/mL (0.465-4.68)
== END 2023-11-17 10:47 | disposition home or self-care (01) ==
PROVIDERS: Physician Assistant; PCP Family Medicine; Visit Provider Internal Medicine
PROC: 0DJD8ZZ Inspection of Lower Intestinal Tract, Via Natural or Artificial Opening Endoscopic (ICD-10-PCS; CPT 45378; principal; 2023-11-17 10:00)
DX: Z12.11 Encounter for screening for malignant neoplasm of colon (principal); Z86.010 Personal history of colon polyps; K63.5 Polyp of colon; K62.1 Rectal polyp
CPT/HCPCS: 45385; 45380; 36415; 80048; 80061; 80076; 83735; 84439; 84443; 85025; J2704; J7120

== ENCOUNTER 2024-03-04 10:53 | Emergency (ER) | payer OTHER, SELFPAY ==
[2024-03-04 12:15] VITALS: BP 129/58; PULSE 69; RESP 20; TEMP 37.8; O2SAT 97; BMI 27.1
[2024-03-04 12:35] LABS: UTC Strep Screen (Rapid) Positive (Negative)
--- NOTE | 2024-03-04 12:36 | ED_ITS ---
Discharge Plan Disposition Patient Disposition: Home, Self-Care Condition: Good Prescriptions Prescriptions: New amoxicillin 875 mg tablet 875 mg PO Q12H Qty: 20 0RF fluticasone propionate [Flonase Allergy Relief] 50 mcg/actuation spray,suspension 2 spray intranasal DAILY Qty: 16 0RF Rx Instructions: administer into each nostril daily methylprednisolone [Medrol (Elio)] 4 mg tablets,dose pack See Rx Instructions .Route .COMPLEX 6 Days Qty: 21 0RF Rx Instructions: taper pack; No Action sertraline 50 mg tablet 75 mg PO DAILY 3 Days Qty: 4.5 Patient Comments: TK 1 AND 05/11 T PO ONCE A DAY loratadine 10 mg tablet 10 mg PO DAILY propranolol 60 mg capsule,extended release 24 hr 60 mg PO DAILY Qty: 90 3RF Rx Instructions: take one capsule by mouth once daily pregabalin [Lyrica] 75 mg capsule 75 mg PO BID Qty: 60 5RF Referrals Follow up/Referrals: Grey Valadez MD [Primary Care Provider] - See instructions Activity Restrictions/Add. Instructions Additional Instructions/Restrictions: *Monitor Temp, Over the counter Motrin or Tylenol as directed/as needed Tylenol every 4 hours and Motrin every 6 hours (as long as your family doctor has told you that you can take it) for fever or pain. and straight to ER if unable to lower temp less than 101.0 after medication given *Warm salt water gargles may help to soothe the throat *Throat Lozenges? *Warm fluids like tea with honey may help to soothe the throat? *Sleep elevated *Humidifier/Vaporizer *Flonase 2 sprays in each nostril daily but be aware that it may take 2-3 days before you notice improvement *If you did not take Penicillin shot or was unable to, start taking antibiotic immediately and make sure that you take it for the FULL length of time although you should start to feel better in 24-48 hours *change toothbrush and toothpaste 24-48 hours after starting to take antibiotics so you do not reinfect yourself Monitor Temp. Tylenol and/or Ibuprofen as needed. ER if fever is no less than 101 despite alternating Tylenol and Ibuprofen * Encourage fluids, water, Gatorade, powerade, pedialyte if infant/toddler/or child *Cold fluids, popsicles and ice cream may feel good on his throat Follow up IMMEDIATELY for new or worsening symptoms or no Noticeable improvement over the next 48-72 hours. 911 for difficulty breathing or swallowing Clinical Impressions Clinical Impression: Strep throat Instructions Patient Instructions: DI for Strep Throat, Amoxicillin Print Language Print Language: [place] Discharge ED Provider: Gayle Espinosa [facility] [place] General Stated complaint: sore throat, cough, dizzy Mode of Arrival: Ambulatory Source of Information: Patient Limitations: No Limitations Time Seen by Provider: 03/04/24 12:36 Description of Symptoms (Recalled from Triage Doc. by RN): PATIENT C/O SORE THROAT, HEADACHE, AND MUSCLE ACHES SINCE YESTERDAY HEENT Symptoms (Recalled from RN notes): Yes Resp Symptoms (Recalled from RN notes): No Skin Symptoms (Recalled from RN notes): No MS Symptoms (Recalled from RN notes): No Functional Status (Recalled from RN notes): WNL History of Present Illness Provider Complaint: Patient states that he started feeling bad yesterday with sore throat, body aches and chills State today his throat was hurting worse and he had an episode earlier of dizziness but didnt last long so he came in to get checked Related Data Home Medications ?Medication ?Instructions ?Recorded ?Confirmed sertraline 50 mg tablet 75 mg PO DAILY 3 days #4.5 tabs 02/01/18 03/04/24 loratadine 10 mg tablet 10 mg PO DAILY 01/19/24 03/04/24 Previous Rx's ?Medication ?Instructions ?Recorded pregabalin 75 mg capsule (Lyrica) 75 mg PO BID #60 caps 09/09/23 propranolol 60 mg capsule,24 60 mg PO DAILY htn #90 caps 01/17/24 hr,extended release amoxicillin 875 mg tablet 875 mg PO Q12H #20 tabs 03/04/24 fluticasone propionate 50 2 spray intranasal DAILY #16 grams 03/04/24 mcg/actuation nasal spray,suspension (Flonase Allergy Relief) methylprednisolone 4 mg tablets in See Rx Instructions .Route 03/04/24 a dose pack (Medrol (Elio)) .COMPLEX 6 days #21 tabs Allergies Allergy/AdvReac Type Severity Reaction Status Date / Time No Known Allergies Allergy Verified 01/19/24 13:25 Worker's Comp Is this a Worker's Comp case?: No [facility] Disclaimer: The information contained in this section may have been updated after the patient was seen, as this information can be updated by other users. Medical History Sleep apnea History of gastroesophageal reflux (GERD) Surgical History History of tonsillectomy History of cholecystectomy Family History (Updated 01/19/24 @ 13:24 by JUANA Beck) Other Family history of acute congestive heart failure Family history of cancer Hypertension Lung cancer Social History Smoking Status: Former smoker tobacco type: cigarettes second hand exposure: No alcohol intake: current alcohol intake frequency: 3 or more drinks per day counseling provided: none substance use type: denies use current occupational status: employed Travel in the last 8 weeks: None household members: spouse and children housing: house current occupational exposures/hazards: No caffeine: No ROS Obtained: Yes All systems reviewed & no additional complaints except as documented and Yes Systems reviewed as appropriate & no additional complaints except as documented Constitutional Constitutional: Reports system reviewed and no additional complaints, except as documented, Reports as per HPI, Reports body ache, Reports chills and Reports headache(s) ENT Ears, Nose, Mouth, and Throat: Reports system reviewed and no additional complaints, except as documented, Reports as per HPI, Reports dizziness, Reports headache(s) and Reports sore throat Cardiovascular Cardiovascular: Reports system reviewed and no additional complaints, except as documented and Reports as per HPI Respiratory Respiratory: Reports system reviewed and no additional complaints, except as documented and Reports as per HPI Gastrointestinal Gastrointestingal: Reports system reviewed and no additional complaints, except as documented and as per HPI Neurologic Neurologic: Reports dizziness and Reports headache(s) Physical Exam General General appearance: alert and in no apparent distress ENT ENT exam: Present mucous membranes moist Expanded ENT Exam TM/Canal exam: Bilateral TM: bulging Throat exam: Present other (Pharyngeal erythema noted ) Respiratory Respiratory exam: Present normal lung sounds bilaterally; Absent respiratory distress or wheezes Cardiovascular Cardiovascular exam: Present regular rate, normal rhythm and normal heart sounds Neurological Exam Neurological exam: Present alert, oriented X3 and normal gait Medical Decision Making Medical Records Screening: Per USPSTF and CDC recommendations, given the prevalence of disease in our re gion, it is our hospital?s policy to screen for HIV and viral Hepatitis for all patients aged 18 and over and those with ongoing risk factors. Chano Inquiry Pt receiving controlled substance: No Chano was queried for this patient: No Vital Signs: 03/04/24 12:15 Temperature 100.0 F H Temperature Source Oral Pulse Rate [Left Brachial] 69 Respiratory Rate 20 Blood Pressure [Left Arm] 129/58 L Blood Pressure Mean [Left Arm] 81 Blood Pressure Source [Left Arm] Automatic Cuff Blood Pressure Position [Left Arm] Sitting 02 Sat by Pulse Oximetry 97 Oxygen Delivery Method Room Air Lab Data Lab results reviewed: Yes I reviewed the patient's lab results. Lab Results 03/04/24 12:25: Strep Scn Rapid Clinic Positive A Medical Decision Narrative: Patient states he has take steriods in the past without complications or reactions
[2024-03-04 12:46] VITALS: BP 129/58; PULSE 69; RESP 20; TEMP 37.8; O2SAT 97
== END 2024-03-04 12:49 | disposition home or self-care (01) ==
PROVIDERS: Emergency Provider Nurse Practitioner; PCP Family Medicine
DX: J02.0 Streptococcal pharyngitis (principal); J02.9 Acute pharyngitis, unspecified; R05.9 Cough, unspecified; R42 Dizziness and giddiness; R51.9 Headache, unspecified; M79.10 Myalgia, unspecified site
CPT/HCPCS: 87880; 99212; G0381

== ENCOUNTER 2025-01-29 10:22 | Outpatient (CLI) | payer OTHER, SELFPAY ==
--- OUTSIDE RECORDS SUMMARY | 2025-01-09 05:12 | XMS_ITS ---
[facility] [address] [facility] [address] [facility] [address] [place] [phone] Care Team Providers Care Transformer Repairer Name Role Phone [place], Grey Primary Care Provider REASON FOR VISIT due LDCT Problems Problem Type SNOMED Code ICD Code Onset Dates Problem Status W/U Status Risk Notes Problem Current smoker (01685267) Current smoker (F17.200) Active confirmed Encounters Encounter Location Date Provider [facility] [place] [address] [facility] [address] [facility] [address] [place] [phone] 01/09/2025 Grey Valadez Encounter for screening for lung cancer Z12.2 and Current smoker F17.200 Assessments Encounter Date Diagnosis (ICD Code) Assessment Notes Treatment Notes Treatment Clinical Notes Section Notes 01/09/2025 Encounter for screening for lung cancer (ICD-10 - Z12.2) 01/09/2025 Current smoker (ICD-10 - F17.200) Plan Of Treatment Pending Test Test Name Order Date CT Scan : Chest, low dose 01/09/2025 Progress Notes * Negrito HERCULESDOB:1965 (59 yo M)Acc No.[id number]:01/09/2025 Patient: Negrito MILLER :1965 A ge:59 Y S ex:Male Address:[address] [place], [place] [address] [address] [place] [address] Subjective: * Chief Complaints: * d ue LDCT * Medical History: * Surgical History: * Hospitalization/Major Diagno stic Procedure: * Medications: Objective: * Vitals: * Physical Examination: Assessment: * Assessment: 1. E ncounter for screening for lung cancer - Z12.2 (Primary) 2 . C urrent smoker - F17.200 Plan: * Treatment: 2.?Current smoker?Imaging: CT Scan : Chest, low dose* Jemima Chen 01/10/2025 09:57 :00 AM EDT >sent to [facility] for referral to [facility] * Procedure Codes: * true * Date: Generated for Iza robin/Jackie/Yelenaitting on: 0 01/29/2025 10:32 AM EDT
--- NOTE | 2025-01-29 10:26 | CT_ITS ---
FINAL REPORT TECHNIQUE: Thin section axial images were obtained through the lungs using a low-dose technique per lung cancer screening protocol. Reconstruction images were obtained using the axial data. Exam was performed using dose reduction technique. CLINICAL HISTORY: SCREENING, former smoker - quit smoking 9 yrs ago, smoked 1 pack per day for 30 yrs, mother had lung cancer COMPARISON: 03/13/2021 FINDINGS: CTDLvol: 2.90 DLP: 118.03 Former smoker 30 pack year history Lungs: There has been no change and a 4 mm nodule along the left major fissure on series 4 image 54. The lungs are otherwise clear. No consolidations. Lymph nodes: No thoracic lymphadenopathy. Mediastinum: Heart size is normal. Pleura/pericardium: No pleural or pericardial effusion. Other: No acute abnormality in the upper abdomen. IMPRESSION: Stable left lung nodule. Lung RADS: 2 Recommendation: 12-month follow-up low-dose chest CT Reviewed, Interpreted and Dictated by Daniela Vergara MD Transcribed by Courtney Saucedo Authenticated and [facility]
--- OUTSIDE RECORDS SUMMARY | 2025-01-29 10:32 | XMS_ITS | Clinical Summary ---
[facility] Address [address] [place] [address] Care Team Providers Care Shellacker Name Role Phone Grey Valadez MD Primary Care Provider + [phone] Allergies No known active allergies Medications pregabalin (LYRICA) 75 MG capsule TAKE 1 CAPSULE BY MOUTH TWICE DAILY FOR PAIN 3 Active propranolol LA (INDERAL LA) 60 MG 24 hr capsule 3 Active sertraline (ZOLOFT) 50 MG tablet Take 1.5 tablets by mouth Daily. 3 Active sertraline (ZOLOFT) 25 MG tablet sertraline 25 mg tablet TAKE 1 TABLET BY MOUTH EVERY DAY Active Active Problems Problem Noted Date Diagnosed Date Shortness of breath 10/12/2017 Overview (10/12/2017): Added automatically from request for surgery [id number] Chest tightness 10/12/2017 Overview (10/12/2017): Added automatically from request for surgery [id number] History of tobacco abuse 10/12/2017 Overview (10/12/2017): Added automatically from request for surgery [id number] Positive cardiac stress test 10/12/2017 Overview (10/12/2017): Added automatically from request for surgery [id number] Fatigue 10/12/2017 Overview (10/12/2017): Added automatically from request for surgery [id number] Family History Medical History Relation Name Comments Heart failure Father Lung cancer Father No Known Problems Maternal Grandfather No Known Problems Maternal Grandmother Colon cancer Mother No Known Problems Paternal Grandfather No Known Problems Paternal Grandmother Relation Name Status Comments Father Maternal Grandfather Maternal Grandmother Mother Alive Paternal Grandfather Paternal Grandmother Social History Tobacco Use Types Packs/Day Years Used Date Smoking Tobacco: Former Cigarettes 1 30 0 09/05/1987 - 09/04/2017 Smokeless Tobacco: Never Tobacco Cessation:Counseling Given: Not Answered Alcohol Use Standard Drinks/Week Comments Yes 0 (1 standard drink = 0.6 oz pur e alcohol) 6-10 DRINKS DAILY Abuse Screen Answer Date Recorded Unsafe at Home or Work/School Not on file Feels Threatened by Someone? Not on file 04/2023 Does Anyone Keep You from Co ntacting Others or Doint Things Outside the Home? Not on file 02/18/2023 Physical Sign of Abuse Present Not on file 1 Housing Stability Answer Date Recorded Current Living Arrangements Not on file 02/07 Potentially Unsafe Housing Conditions Not on lu e 02/18/2023 Family and Community Support Answer Manuel e Recorded Help with Day-to-Day Activities Not on file 02/18/2023 Lonely or Isolated Not on file 02/18/2023 Employment Answer Date Recorded Do you want help finding or keeping work or a christin b? Not on file 02/18/2023 Disabilities Answer Date Recorded Concentrating, Remembering, or Making Decisions Difficulty Not on file 02/18/2023 Doing Errands Independently Difficulty Not on fi le 02/18/2023 Education Answer Date Recorded Help with school or training? Not on file Preferred Language Not on file 02/18/2023 Sex and Gender Information Value Date Recorded Sex Assigned at Not on file Legal Sex Male 12:10 PM EDT Gender Identity Not on file Sexual Orientation Not on file Last Filed Vital Signs Vital Sign Reading Time Taken Comments Blood Pressure 110/64 10/06/2022 3:18 PM EDT Pulse 70 10/08/2017 11:44 AM EDT Temperature 36.5 C (97.7 F) 10/08/2017 8:12 AM EDT Respiratory Rate 16 10/08/2017 8:12 AM EDT Oxygen Saturation 100% 10/08/2017 8:12 AM EDT RA Inhaled Oxygen Concentration - - Weight 77.1 kg (170 lb) 10/06/2022 3:18 PM EDT Height 167.6 cm (5' 6 ) 10/06/2022 3:18 PM EDT Body Mass Index 27.44 10/06/2022 3:18 PM EDT Plan of Treatment Health Maintenance Due Date Last Done Comments TDAP/TD VACCINES (1 - Tdap) 11/27/1983 COLOGUARD 2009 COLON CANCER SCREENING 5 YEAR SIGMOIDOSCOPY 2009 COLONOSCOPY [address] SCREENING [address] COLONOGRAPHY 2009 FECAL OCCULT BLOOD TEST 2009 FIT Testing (1 year) 2009 Pneumococcal Vaccine 50+ (1 of 1 - PCV) 2014 ZOSTER VACCINE (1 of 2) 2014 ANNUAL PHYSICAL 10/08/2017 HEPATITIS C SCREENING 10/08/2017 INFLUENZA VACCINE 12/08/2024 Insurance [address] [place] [id number] [employer] Care Teams Shellacker Relationship Specialty Start Date End Date Grey Valadez MD [address] [place] [id number] PCP - General Family Medicine 10/06/17
--- OUTSIDE RECORDS SUMMARY | 2025-01-29 10:32 | XMS_ITS | Clinical Summary ---
Author Organization [facility] [place] [address] Care Team Providers Care Integrity Manager Name Role Phone Unavailable Primary Care Provider Unavailabl e Social History Tobacco Use Types Packs/Day Years Used Date Smoking Tobacco: Never Assessed Sex and Gender Information Value Date Recorded Sex Assigned at Not on file Legal Sex Male 3:31 AM EDT Gender Identity Not on file Sexual Orientation Not on file Plan of Treatment Health Maintenance Due Date Last Done Comments Annual Wellness Exam 11/27/1967 Hepatitis C Screening 1982 DTaP/TDaP/Td (1 - Tdap) 11/27/1983 Cologuard 2009 Colon Cancer Screening 2009 Colonoscopy 2009 FIT 2009 Sigmoidoscopy 2009 Virtual Colonography 2009 Pneumococcal Vaccine 50+ (1 of 1 - PCV) 2014 Zoster (1 of 2) 2014 COVID-19 Vaccine (2023-2 5 season) 2025 Influenza Vaccine (#1) 2025 Hepatitis B Vaccine Aged Out No longe r eligible based on patient's age to complete this topic Meningococcal B Vaccine Aged Out No l onger eligible based on patient's age to complete this topic
--- OUTSIDE RECORDS SUMMARY | 2025-01-29 10:33 | XMS_ITS | Patient Health Record ---
[facility] [address] [facility] [address] [place] [id number] Care Team Providers Care Air Sampler Name Role Phone Grey Valadez Primary Care Provider Allergies No Known Allergies Results Component Value Reference Range Notes P-Basic Metabolic Panel (BMP ) Reviewed date:06/22/2024 09:08:56 AM Interpretation:gluc 100 Performing Lab: Notes/Report: Test performed by [facility] [address] [place], [place] [address] [place] , [address], [place] [address] Jose Chang MD, Protective Officer CLIA: [id number] Sodium 137 135-145 mmol/L Potassium 4.4 3.5-5.3 mmol/L Chloride 98 97-108 mmol/L CO2 24 22-32 mmol/L Glucose 100 65-99 mg/dL BUN 10 6-20 mg/dL Creatinine 1.01 0.70-1.30 mg/dL Calcium 9.9 8.6-10.4 mg/dL eGFR by Creatinine 85 >59 mL/min/1.73m2 P-Lipid Panel Reviewed date:06/22/2024 09:08:56 AM Interpretation:chol 229, trigs 200, non-hdl 177, ldl 137 Performing Lab: Notes/Report: Test performed by [facility] [address] [place], [place] [address] [place] , [address], [place] [address] Jose Chang MD, Protective Officer CLIA: [id number] Cholesterol 229 <200 mg/dL Triglycerides 200 <150 mg/dL HDL Cholesterol 52 >39 mg/dL Cholesterol / HDL Ratio 4.40 0.00-4.99 Ratio Non-HDL Cholesterol 177 <130 mg/dL LDL Cholesterol (Calculation) 137 <130 mg/dL LDL Cholesterol Levels* Less than 100 mg/dL Optimal 100 to 129 mg/dL Near Optimal/ Above Optimal 130 to 159 mg/dL Borderline High 160 to 189 mg/dL High 190 mg/dL and above Very High * Categories as recommended by the 2004 ATPIII guidelines LDL/HDL Ratio 2.6 <3.3 Ratio LDL Cholesterol Patient History Test Date: 06/21/2024 LDL Results: 137 Units: mg/dL % Change: - P-PSA Reviewed date:06/22/2024 09:08:56 AM Interpretation:Normal Performing Lab: Notes/Report: Test performed by [facility] [address] [place] [address] [place] [address] Jose Chang MD, Protective Officer CLIA: [id number] PSA 1.24 <4.00 ng/mL Please note this is an ultrasensitive PSA assay with a lower limit of detection of 0.014 ng/mL. This test is performed by the Chris ECLIA methodology. Values obtained with different assay methods or kits cannot be directly compared. P-TSH reflex to FT4 Reviewed date:06/22/2024 09:08:56 AM Interpretation:Normal Performing Lab: Notes/Report: Test performed by [facility] [place] [address] Jose Chang MD, Protective Officer CLIA: [id number] TSH reflex to FT4 2.55 0.43-5.25 mU/L P-Microalbumin/Creatinine, R andom Urine Sample Reviewed date:06/22/2024 09:08:56 AM Interpretation:a/c 77 Performing Lab: Notes/Report: Test performed by [facility] [address] [place] [address] , [address], [place] [address] Jose Chang MD, Protective Officer CLIA: [id number] Albumin/Creatinine Ratio, Urine 77 0-30 ug/mg Microalbumin, Urine, Random 9.0 Creatinine, Urine 117.4 P-Comprehensive Metabolic Pa darrius (CMP) Reviewed date:12/29/2024 10:23:06 AM Interpretation:Normal Performing Lab: Notes/Report: Test performed by [facility] [address] [place] [address] , [address], [place] [address] Jose Chang MD, Protective Officer CLIA: [id number] Sodium 138 135-145 mmol/L Potassium 4.9 3.5-5.3 mmol/L Chloride 101 97-108 mmol/L CO2 26 20-32 mmol/L Glucose 91 65-99 mg/dL BUN 12 8-23 mg/dL Creatinine 0.88 0.70-1.30 mg/dL Calcium 9.9 8.6-10.4 mg/dL eGFR by Creatinine 98 >59 mL/min/1.73m2 Protein 6.9 6.0-8.3 g/dL Albumin 4.7 3.5-5.3 g/dL Alkaline Phosphatase 87 40-129 IU/L ALT (SGPT) 14 <5-55 IU/L AST (SGOT) 15 <5-46 IU/L Bilirubin, Total 0.8 <0.2-1.2 mg/dL A/G Ratio 2.1 1.1-2.5 P-Lipid Panel Reviewed date:12/29/2024 10:23:06 AM Interpretation:chol 219, trigs 212, non-hdl 168 Performing Lab: Notes/Report: Test performed by [facility] [address] [place] [address] , [address], [place] [address] Jose Chang MD, Protective Officer CLIA: [id number] Cholesterol 219 <200 mg/dL Triglycerides 212 <150 mg/dL HDL Cholesterol 51 >39 mg/dL Cholesterol / HDL Ratio 4.29 0.00-4.99 Ratio Non-HDL Cholesterol 168 <130 mg/dL LDL Cholesterol (Calculation) 126 <130 mg/dL LDL Cholesterol Levels* Less than 100 mg/dL Optimal 100 to 129 mg/dL Near Optimal/ Above Optimal 130 to 159 mg/dL Borderline High 160 to 189 mg/dL High 190 mg/dL and above Very High * Categories as recommended by the 2004 ATPIII guidelines LDL/HDL Ratio 2.5 <3.3 Ratio LDL Cholesterol Patient History Test Date: 06/21/2024 LDL Results: 137 Units: mg/dL % Change: - Test Date: 12/27/2024 LDL Results: 126 Units: mg/dL % Change: -8% Reason For Referral No Information Medications Medication SIG (Take, Route, Frequency, Duration) Notes Start Date End Date Status Propranolol HCl ER 60 MG 1 cap(s) orally once a day Active Sertraline HCl 50 MG 1.5 tablet Orally O nce a day; Duration: 30 days 01/17/2025 Active Immunizations Vaccine Route Administration Date Status Comme nts COVID 19 Moderna Unknown 09/20/2020 Administered COVID 19 Moderna Unknown 10/18/2020 Administered COVID 19 Moderna Unknown 04/30/2021 Administered Problems Problem Type SNOMED Code ICD Code Onset Dates Problem Status W/U Status Risk Notes Problem Essential hypertension (25557304) Essential (primary) hypertension (I10) Active confirmed Problem Hypertriglyceridemia (731276210) Hypertriglyceridemia (E78.1) Active confirmed Problem Anxiety (80579253) Anxiety (F41.9) Active confi rmed Problem Prolapsed cervical intervertebral disc (808579574) Cervical disc herniation (M50.20) Active confirmed Problem Mixed hyperlipidemia (337825950) Mixed hyperlipidemia (E78.2) Active confirmed Problem Chronic pain (81530233) Other chronic pain (G89.29) Active confirmed Problem Degeneration of cervical intervertebral disc (90500899) Degenerative disc disease, cervical (M50.30) Active confirmed Problem History of polyp of colon (situation) (587579623) History of colon polyps (Z86.010) Active confirmed Problem Chronic pain (81365026) Other chronic pain (G89.29) Active confirmed Problem COPD - Chronic obstructive pulmonary disease (43042031) Chronic obstructive pulmonary disease, unspecified COPD type (J44.9) Active confirmed Problem Panic disorder (340308441) Panic attacks (F41.0) Active confirmed Problem Current smoker (75538098) Current smoker (F17.200) Active confirmed Problem Cervical spondylosis without myelopathy (363719324) Osteoarthritis of spine with radiculopathy, cervical region (M47.22) Active confirmed Problem Tobacco user (538106118) Cigarette nicotine dependence without complication (F17.210) Active confirmed Problem Cervical spinal stenosis (28620702) Cervical spinal stenosis (M48.02) Active confirmed Problem Generalized anxiety disorder (69001104) KALI (generalized anxiety disorder) (F41.1) Active confirmed Problem Degeneration of thoracic intervertebral disc (85432555) 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) Active confirmed Problem Intervertebral disc disorder (14190555) Thoracic disc disease (M51.9) Active confirmed Vital Signs Heart Rate 55 /min 12/27/2024 Blood pressure diastolic 70 mm Hg 12/27/2024 Height 67 in 12/27/2024 Blood pressure systolic 116 mm Hg 12/27/2024 Weight 171 lbs 12/27/2024 BMI 26.78 kg/m2 12/27/2024 Encounters Encounter Location Date Provider Diagnosis [facility] [address] [place], [place] [id number] 06/21/2024 Grey Wolsey Essential (primary) hypertension I10 ; KALI (generalized anxiety disorder) F41.1 ; Pain in right shoulder M25.511 ; Other chronic pain G89.29 and Prostate cancer screening Z12.5 [facility] [address] [place], [place] [id number] 12/27/2024 Grey Wolsey Essential (primary) hypertension I10 ; Mixed hyperlipidemia E78.2 ; Hypertriglyceridemia E78.1 ; Encounter for immunization Z23 and BMI 26.0-26.9,adult Z68.26 [facility] [address] [place], [place] [id number] 06/22/2024 Grey Wolsey [facility] [address] [place], [place] [id number] 12/11/2024 Grey Wolsey [facility] [address] [place], [place] [id number] 12/29/2024 Grey Wolsey [facility] [address] [place], [place] [id number] 01/09/2025 Grey Wolsey Encounter for screen ing for lung cancer Z12.2 and Current smoker F17.200 [facility] [address] [place], [place] [id number] 01/17/2025 Grey Wolsey Assessments Encounter Date Diagnosis (ICD Code) Assessment Notes Treatment Notes Treatment Clinical Notes Section Notes 12/27/2024 Mixed hyperlipidemia (ICD-10 - E78.2) 01/09/2025 Current smoker (ICD- 10 - F17.200) 01/09/2025 Encounter for screen ing for lung cancer (ICD-10 - Z12.2) 06/21/2024 Essential (primary) hypertension (ICD-10 - I10) 12/27/2024 Essential (primary) hypertension (ICD-10 - I10) 06/21/2024 KALI (generalized anx iety disorder) (ICD-10 - F41.1) Plan to wean off as tolerated over the next 4 to 6 weeks 12/27/2024 Hypertriglyceridemia (ICD-10 - E78.1) 06/21/2024 Pain in right should er (ICD-10 - M25.511) Home exercise program provided to patient 12/27/2024 Encounter for immunization (ICD-10 - Z23) 06/21/2024 Other chronic pain (ICD-10 - G89.29) 06/21/2024 Prostate cancer screening (ICD-10 - Z12.5) 12/27/2024 BMI 26.0-26.9,adult (ICD-10 - Z68.26) Plan Of Treatment Pending Test Test Name Order Date CT Scan : Chest, low dose 01/09/2025 Insurance Providers Payer Name Payer Address Payer Phone Subscriber Number Group Number Insured Name Patient Relationship to Insured Coverage Start Date Coverage End Date [facility] [id number] [place] [address] [id number] Negrito Hercules Self - patient is the insured Medical (General) History Medical History History ICD Code Hypertension Chronic Back Pain Anxiety Colon Polyps Surgical History Surgery Date(Month/Year) Hospitalization History Reason Date(Month/Year) Panic Attack- [facility] ER 12/20/2017 Palpitations- [facility] ER 11/12/2017 Anxiety, SOA, Lightheaded, Dizzy- [facility] ER 09/2017 SOA- [facility] ER 08/07/2017 Chest Discomfort- [facility] 12/16
== END 2025-01-29 23:59 | disposition home or self-care (01) ==
LOC: RAD 10:22
PROVIDERS: PCP Family Medicine; Visit Provider Family Medicine
DX: Z12.2 Encounter for screening for malignant neoplasm of respiratory organs (principal); R91.1 Solitary pulmonary nodule; Z87.891 Personal history of nicotine dependence; Z80.1 Family history of malignant neoplasm of trachea, bronchus and lung
CPT/HCPCS: 71271